=== PATIENT | female | born 1955 | race Caucasian/White ===

== ENCOUNTER 2016-09-06 12:29 | Inpatient (IN) | payer MEDICARE, OTHER ==
[~2016-09-06] VITALS: Ht 157.5 cm; Wt 77.7 kg
[~2016-09-06 12:29] MED LIST: ALPR1TAB6 PO; CRESTOR40 MG PO; FLUT1DIS3 IH; LOSA100T6 PO; OXYC1TAB9 PO; SERT100T PO; TIZA4TAB PO; VENL75CA6 PO
--- NOTE | 2016-09-06 12:52 | EKG ---
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
[2016-09-06] MEDS ORDERED: ONDANSETRON PF 4 MG/2 ML VIAL. IV ONE ×2 (13:15→13:30)
[2016-09-06] MEDS ORDERED: IPRATRPIUM/ALBUTEROL 0.5/2.5MG 3 ML NEBU. ONE (13:15)
[2016-09-06] MEDS ORDERED: ALBUTEROL SULFATE 2.5 MG/3 ML NEBU. ONE (13:15)
[2016-09-06] MEDS ORDERED: IPRATRPIUM/ALBUTEROL 0.5/2.5MG 3 ML NEBU. NEB ONE ×2 (13:30)
[2016-09-06] MEDS ORDERED: methylPREDNISolone SOD SUCC PF 125 MG/2 ML VIAL. IV ONE (13:30)
[2016-09-06] MEDS ORDERED: ALBUTEROL SULFATE 2.5 MG/3 ML NEBU. NEB ONE (13:30)
--- NOTE | 2016-09-06 13:33 | PHYS DOC ---
Past History Past Medical History: Arthritis, COPD, Hypertension, Other Past Surgical History: Cholecystectomy, Knee Replacement, Tubal ligation, Other Smoking: Greater than 1 pack/day Alcohol Use: None Drug Use: None Adult General Chief Complaint Chief Complaint: SHORTNESS OF BREATH HPI HPI Patient is a 61 year old female who presents with complaint of cough, shortness of breath, and chest pain. Patient states her symptoms have been present over the past week. Patient states that she has had aching pain across her chest over the past few days and has started to develop sharp pain along the left side of her chest. Patient states that her cough has been nonproductive. Patient has history of asthma and states that her asthma symptoms have been worsening during this time. The patient states that she was going to see her primary doctor today for evaluation, however she started getting worsening pain along the left side of her chest which prompted her to come to the emergency department for evaluation. Patient had no fevers. Patient states that she took breathing treatments earlier today with mild improvement in her shortness of breath symptoms. Patient states that she is still neck smoker at this time. Denies any history of heart attack. Review of Systems Review of Systems Constitutional: Fatigue, denies fever or chills [] Eyes: Denies change in visual acuity, redness, or eye pain [] HENT: Denies nasal congestion or sore throat [] Respiratory: Shortness of breath, cough [] Cardiovascular: Chest pain [] GI: Denies abdominal pain, nausea, vomiting, bloody stools or diarrhea [] : Denies dysuria or hematuria [] Musculoskeletal: Denies back pain or joint pain [] Integument: Denies rash or skin lesions [] Neurologic: Denies headache, focal weakness or sensory changes [] Current Medications Current Medications Current Medications Medications (Trade) Dose Ordered Sig/Sterling Start Time Stop Time Status Last Admin Dose Admin Albuterol Sulfate (Ventolin) 2.5 mg 1X ONCE 09/06/16 13:30 09/06/16 13:31 Albuterol/ Ipratropium (Duoneb) 3 ml 1X ONCE 09/06/16 13:30 09/06/16 13:31 Fentanyl Citrate (Fentanyl 2ml Vial) 50 mcg PRN Q15MIN PRN 09/06/16 13:15 09/07/16 13:14 Methylprednisolone Sodium Succinate (SOLU-Medrol 125MG VIAL) 125 mg 1X ONCE 09/06/16 13:30 09/06/16 13:31 Ondansetron HCl (Zofran) 4 mg 1X ONCE 09/06/16 13:15 09/06/16 13:17 DC Allergies Allergies Allergies Coded Allergies Type Severity Reaction Last Updated Verified Penicillins Allergy Severe 02/12/14 No Sulfa (Sulfonamide Antibiotics) Allergy Severe 02/12/14 No cephalexin Allergy Severe 02/12/14 No Physical Exam Physical Exam Constitutional: Alert, afebrile, appears in moderate discomfort. [] HENT: Normocephalic, atraumatic, bilateral external ears normal, oropharynx moist, no oral exudates, nose normal. [] Eyes: PERRLA, EOMI, conjunctiva normal, no discharge. [] Neck: Normal range of motion, no tenderness, supple, no stridor. [] Cardiovascular:Heart rate regular rhythm, no murmur [] Lungs & Thorax: Expiratory wheezes bilaterally, prolonged x-ray phase, tenderness to palpation along anterior and sternum and left anterior chest wall causing reproducible pain [] Abdomen: Bowel sounds normal, soft, no tenderness, no masses, no pulsatile masses. [] Skin: Warm, dry, no erythema, no rash. [] Back: No tenderness, no CVA tenderness. [] Extremities: No tenderness, no cyanosis, no clubbing, ROM intact, no edema. [] Neurologic: Alert and oriented X 3, normal motor function, normal sensory function, no focal deficits noted. [] Current Patient Data Vital Signs Vital Signs Date Time Temp Pulse Resp B/P (MAP) Pulse Ox O2 Delivery O2 Flow Rate FiO2 09/06/16 12:30 99.4 106 20 98 Room Air EKG EKG Interpreted by me: Heart rate 98, sinus rhythm, normal intervals, normal axis, no acute ST/T-wave abnormalities present [] Radiology/Procedures Radiology/Procedures [address] [address] IMAGING REPORT Signed PATIENT: KAI AMEZCUA ACCOUNT: [id number] : 1955 LOCATION: ER AGE: 61 SEX: F EXAM STATUS: REG ER ORD. PHYSICIAN: DONALD BEY MD REASON: chest pain, cough PROCEDURE: PORTABLE CHEST 1V Portable chest, 09/06/2016: History: Chest pain, cough, shortness of breath Comparison is made to a study from 02/09/2016. The heart size and pulmonary vascularity are normal. There is calcific plaquing of the aorta. No pulmonary infiltrates are seen. There is no evidence of pleural fluid. IMPRESSION: No acute cardiopulmonary abnormality is detected. DICTATED AND SIGNED BY: ROSEMARIE MICHEL MD DATE: 09/06/16 1340 CC: DONALD BEY MD; LINDSEY MIRANDA ~ [] Course & Med Decision Making Course & Med Decision Making Pertinent Labs and Imaging studies reviewed. (See chart for details) The patient was treated with albuterol, DuoNeb, Solu-Medrol, and given IV fentanyl for pain. The patient's pain symptoms have improved significantly and patient's cardiac enzymes are negative. Given the chronic nature of the patient' s pain lasting over 8 hours, and given its atypical features, one set of enzymes at this time is sufficient to rule out myocardial infarction. The patient however attempted to ambulate in the emergency department and started having worsening shortness of breath symptoms which improved with rest. The patient appears to have COPD exacerbation that is not improving with initial treatments. Patient also shows evidence of urinary tract infection. Patient started on Levaquin treatment. Given severity of symptoms, the patient will require admission to the hospital for continued treatment. I spoke with Dr. Elias who accepted care patient in hospital. Dragon Disclaimer Dragon Disclaimer This chart was dictated in whole or in part using Voice Recognition software in a busy, high-work load, and often noisy Emergency Department environment. It may contain unintended and wholly unrecognized errors or omissions. Departure Departure: Impression: Primary Impression: COPD with acute exacerbation Additional Impressions: Chest pain Urinary tract infection Disposition: ADMITTED INPATIENT Admitting Physician: Bindu Elias Condition: GUARDED Referrals: LINDSEY MIRANDA (PCP) Problem Qualifiers Additional Impressions: Chest pain Chest pain type: unspecified Qualified Codes: R07.9 - Chest pain, unspecified Urinary tract infection Urinary tract infection type: site unspecified Hematuria presence: without hematuria Qualified Codes: N39.0 - Urinary tract infection, site not specified DONALD BEY MD Sep 06, 2016 13:32
[2016-09-06 13:42] LABS: BASO # 0.1 x10^3/uL (0.0-0.2); BASO % 1 % (0-3); EOS % 1 % (0-3); HEMATOCRIT 34.9 % (36.0-47.0); HEMOGLOBIN 11.8 g/dL (12.0-15.5); LYMPH % 12 % (24-48); MEAN CORPUSCULAR HEMOGLOBIN 28 pg (25-35); MEAN CORPUSCULAR HGB CONC 34 g/dL (31-37); MEAN CORPUSCULAR VOLUME 84 fL (79-100); MONO # 0.4 x10^3/uL (0.0-1.1); MONO % 5 % (0-9); NEUT # 6.8 x10^3uL (1.8-7.7); NEUT % 82 % (31-73); PLATELET COUNT 275 x10^3/uL (140-400); RED BLOOD COUNT 4.14 x10^6/uL (3.50-5.40); RED CELL DISTRIBUTION WIDTH 13.8 % (11.5-14.5); WHITE BLOOD COUNT 8.3 x10^3/uL (4.0-11.0)
[2016-09-06] MEDS: fentaNYL PF 100 MCG/2 ML VIAL IV PRN ×2 (13:43→14:34)
--- NOTE | 2016-09-06 13:43 | RAD ---
Portable chest, 09/06/2016: History: Chest pain, cough, shortness of breath Comparison is made to a study from 02/09/2016. The heart size and pulmonary vascularity are normal. There is calcific plaquing of the aorta. No pulmonary infiltrates are seen. There is no evidence of pleural fluid. IMPRESSION: No acute cardiopulmonary abnormality is detected.
[2016-09-06 14:11] LABS: ALBUMIN/GLOBULIN RATIO 0.7 (1.0-1.7); CALCIUM 8.3 mg/dL (8.5-10.1); CREATININE 0.6 mg/dL (0.6-1.0); POTASSIUM 3.6 mmol/L (3.5-5.1); TOTAL BILIRUBIN 0.4 mg/dL (0.2-1.0); TOTAL PROTEIN 7.4 g/dL (6.4-8.2)
[2016-09-06 15:41] LABS: BACTERIA,URINE MANY /HPF (0-FEW); BILIRUBIN,URINE NEG (NEG); CLARITY,URINE HAZY; COLOR,URINE YELLOW; GLUCOSE,URINE NEG (NEG); NITRITE,URINE POS (NEG); SQUAMOUS EPITHELIAL CELL,UR OCC /LPF; UROBILINOGEN,URINE 0.2 mg/dL (0.2 mg/dL)
[2016-09-06] MEDS ORDERED: fentaNYL PF 100 MCG/2 ML VIAL IV PRN (17:15)
[2016-09-06] MEDS ORDERED: ONDANSETRON PF 4 MG/2 ML VIAL. IV PRN (17:15)
[2016-09-06] MEDS ORDERED: ACETAMINOPHEN 325 MG TABLET PO PRN (17:15)
[2016-09-06 17:25] VITALS: BP 108/65
[2016-09-06] MEDS: IV NORMAL SALINE 1,000ML 1,000 ML IV SCH (18:58)
[2016-09-06] MEDS: methylPREDNISolone SOD SUCC PF 40 MG/ML VIAL. IV SCH ×2 (18:59→23:48)
[2016-09-06] MEDS ORDERED: ESOM40CA PO (19:55)
[2016-09-06] MEDS ORDERED: SERT50TA PO (19:55)
[2016-09-06 19:56] VITALS: BP 104/62
[2016-09-06] MEDS ORDERED: LEVO150T5 PO (19:56)
[2016-09-06] MEDS ORDERED: SUCR1TAB35 PO (19:57)
[2016-09-06] MEDS ORDERED: PRAM0.125 PO (20:01)
[2016-09-06] MEDS ORDERED: FLUT1BLS IH (20:01)
[2016-09-06] MEDS: oxyCODONE/APAP 10/325 1 TAB TABLET PO PRN (20:19)
[2016-09-06] MEDS: ALPRAZolam 0.5 MG TABLET PO SCH (20:19)
[2016-09-06] MEDS: IPRATRPIUM/ALBUTEROL 0.5/2.5MG 3 ML NEBU. NEB SCH (20:28)
[2016-09-06 21:48] VITALS: BP 100/60
[2016-09-07 02:05] VITALS: BP 105/73
[2016-09-07] MEDS: IV NORMAL SALINE 1,000ML 1,000 ML IV SCH ×2 (02:40→13:58)
[2016-09-07 04:37] VITALS: BP 105/57
[2016-09-07] MEDS: IPRATRPIUM/ALBUTEROL 0.5/2.5MG 3 ML NEBU. NEB SCH ×3 (05:36→15:23)
[2016-09-07] MEDS: methylPREDNISolone SOD SUCC PF 40 MG/ML VIAL. IV SCH ×3 (05:39→17:52)
[2016-09-07 06:41] LABS: CALCIUM 8.7 mg/dL (8.5-10.1); CREATININE 0.7 mg/dL (0.6-1.0); GFR 85.4; POTASSIUM 3.1 mmol/L (3.5-5.1)
[2016-09-07 06:50] LABS: BASO % 0 % (0-3); EOS % 0 % (0-3); HEMATOCRIT 32.5 % (36.0-47.0); HEMOGLOBIN 10.9 g/dL (12.0-15.5); LYMPH # 0.5 x10^3/uL (1.0-4.8); LYMPH % 6 % (24-48); MEAN CORPUSCULAR HEMOGLOBIN 29 pg (25-35); MEAN CORPUSCULAR HGB CONC 34 g/dL (31-37); MEAN CORPUSCULAR VOLUME 85 fL (79-100); MONO # 0.2 x10^3/uL (0.0-1.1); MONO % 2 % (0-9); NEUT % 92 % (31-73); PLATELET COUNT 259 x10^3/uL (140-400); RED BLOOD COUNT 3.84 x10^6/uL (3.50-5.40); RED CELL DISTRIBUTION WIDTH 13.6 % (11.5-14.5); WHITE BLOOD COUNT 8.7 x10^3/uL (4.0-11.0)
[2016-09-07] MEDS ORDERED: POTASSIUM CHLORIDE 20 MEQ TABLET.ER. PO ONE (08:40)
[2016-09-07] MEDS: ALPRAZolam 0.5 MG TABLET PO SCH ×4 (08:42→20:38)
[2016-09-07] MEDS: PANTOPRAZOLE 40 MG TABLET. PO SCH (08:42)
[2016-09-07] MEDS ORDERED: SUCRALFATE 1 GM TABLET. PO PRN (10:15)
--- NOTE | 2016-09-07 10:54 | PDOC1 ---
History of Present Illness Reason for Visit: Dyspnea History of Present Illness Pt presented to the ER yesterday w/ SOA after about 6 days of worsening pleuritic chest pain and SOA. She states that she started feeling poorly last Friday when she was exposed to some pets that lived in a house she was sitting. She says over the course of the week she has gotten more SOA and having pain w/ deep inspiration. She denies dizziness. She did have a fever, subjective. Denies blood in stool or urine. Was in ER a couple years ago w/ acute hepatitis, but this has resolved. Pt states she just saw her PCP last month, and everything checked out ok. She is not sure the last time her thyroid was checked. Today, she states she feels better. She is not requiring O2. She reports she has been tested for sleep apnea and does not have that, only restless leg syndrome. She denies diarrhea or fever since admission. Her son-in-law is an emergency physician. Chief Complaint: SHORTNESS OF BREATH Allergies: Coded Allergies: Penicillins (Unverified Allergy, Severe, 02/12/14) Sulfa (Sulfonamide Antibiotics) (Unverified Allergy, Severe, 02/12/14) cephalexin (Unverified Allergy, Severe, 02/12/14) Past Medical History Cardiac: HTN Pulmonary: Bronchitis Psych: Anxiety Past Surgical History: Cholecystectomy, Total knee replacement (LEFT), Tubal Ligation, Other (resection of stomach tumor) Family History: No pertinent hx Past Social History Smoke: 1 pack per day Alcohol: none Drugs: None Lives: Alone Review of Systems Review Of Systems Fourteen system , review of systems has been reviewed. See HPI for pertinent positives and negative responses, other [place] all other systems are negative, non pertinent or non contributory Constitutional: Fever, Malaise, No: Chills, Sweats Eyes: No: Decreased vision, Eye Pain, Loss of vision ENT: No: Nose pain, Nose congestion, Mouth pain Respiratory: YES: Cough, Shortness of breath Cardiovascular: yes: Chest Pain (pleuritic, improved), No: Palpitations, Orthopnea, Edema, Lt Headedness Gastrointestinal: No: Nausea, Vomiting, Abdominal Pain, Diarrhea, Constipation , Melena, Hematochezia Genitourinary: No: Dysuria, Henaturia, Pelvic Pain SKIN: YES: Warm, Dry, No Rashes Neurological: No: Confusion, Dizziness, Headaches, Memory Loss, Seizures, Tremors, Weakness Allergies: Coded Allergies: Penicillins (Unverified Allergy, Severe, 02/12/14) Sulfa (Sulfonamide Antibiotics) (Unverified Allergy, Severe, 02/12/14) cephalexin (Unverified Allergy, Severe, 02/12/14) Medications Current Medications Albuterol/ Ipratropium (Duoneb) 3 ml STK-MED ONCE .ROUTE ; Start 09/06/16 at 13: 15; Stop 09/06/16 at 13:16; Status DC Albuterol Sulfate (Ventolin) 2.5 mg STK-MED ONCE .ROUTE ; Start 09/06/16 at 13: 15; Stop 09/06/16 at 13:16; Status DC Albuterol/ Ipratropium (Duoneb) 3 ml 1X ONCE NEB Last administered on 13:22; Start 09/06/16 at 13:30; Stop 09/06/16 at 13:31; Status DC Albuterol/ Ipratropium (Duoneb) 3 ml 1X ONCE NEB ; Start 09/06/16 at 13:30; Stop 09/06/16 at 13:31; Status DC Fentanyl Citrate (Fentanyl 2ml Vial) 50 mcg PRN Q15MIN PRN IV PAIN GREATER THAN 3/10 Last administered on 09/06/16 14:34; Start 09/06/16 at 13:15; Stop at 18:35; Status DC Ondansetron HCl (Zofran) 4 mg 1X ONCE IV Last administered on 09/06/16 13:30 ; Start 09/06/16 at 13:30; Stop 09/06/16 at 13:31; Status DC Methylprednisolone Sodium Succinate (SOLU-Medrol 125MG VIAL) 125 mg 1X ONCE IV Last administered on 09/06/16 13:30; Start 09/06/16 at 13:30; Stop 09/06/16 at 13:31; Status DC Albuterol Sulfate (Ventolin) 2.5 mg 1X ONCE NEB Last administered on 13:28; Start 09/06/16 at 13:30; Stop 09/06/16 at 13:31; Status DC Ondansetron HCl (Zofran) 4 mg 1X ONCE IV ; Start 09/06/16 at 13:15; Stop at 13:17; Status DC Levofloxacin/ Dextrose (Levaquin Per Pharmacy) 1 each PRN DAILY PRN MC SEE COMMENTS; Start 09/06/16 at 17:00 Ondansetron HCl (Zofran) 4 mg PRN Q4HRS PRN IV NAUSEA/VOMITING; Start 09/06/16 at 17:15; Stop 09/07/16 at 17:14 Fentanyl Citrate (Fentanyl 2ml Vial) 50 mcg PRN Q2HR PRN IV PAIN Last administered on 09/07/16 04:41; Start 09/06/16 at 17:15; Stop 09/07/16 at 17:14 Sodium Chloride 1,000 ml @ 100 mls/hr Q10H IV Last administered on 09/07/16 02:40; Start 09/06/16 at 17:15; Stop 09/07/16 at 17:14 Acetaminophen (Tylenol) 650 mg PRN Q4HRS PRN PO FEVER; Start 09/06/16 at 17:15 ; Stop 09/07/16 at 17:14 Albuterol/ Ipratropium (Duoneb) 3 ml RTQID NEB Last administered on 09/07/16 09:42; Start 09/06/16 at 20:00; Stop 09/07/16 at 19:59 Methylprednisolone Sodium Succinate (SOLU-Medrol 40MG VIAL) 60 mg Q6HRS IV Last administered on 09/07/16 05:39; Start 09/06/16 at 18:00 Levofloxacin/ Dextrose 150 ml @ 150 mls/hr Q24H IV Last administered on 18:58; Start 09/06/16 at 17:30; Stop 09/07/16 at 09:54; Status DC Oxycodone/ Acetaminophen (Percocet 10/325) 1 tab PRN Q6HRS PRN PO PAIN Last administered on 09/06/16 20:19; Start 09/06/16 at 20:15 Alprazolam (Xanax) 1 mg QID PO Last administered on 09/07/16 08:42; Start at 21:00 Pantoprazole Sodium (Protonix) 40 mg DAILY PO Last administered on 09/07/16 08 :42; Start 09/07/16 at 09:00 Potassium Chloride (Klor-Con) 40 meq 1X ONCE PO Last administered on 08:42; Start 09/07/16 at 08:40; Stop 09/07/16 at 08:41; Status DC Levofloxacin/ Dextrose 50 ml @ 50 mls/hr Q24H IV ; Start 09/07/16 at 17:00 Levothyroxine Sodium (Synthroid) 150 mcg DAILY06 PO ; Start 09/07/16 at 11:00 Sertraline HCl (Zoloft) 50 mg DAILY PO ; Start 09/07/16 at 11:00 Sertraline HCl (Zoloft) 150 mg QHS PO ; Start 09/07/16 at 21:00 Sucralfate (Carafate) 1 gm PRN DAILY PRN PO HEARTBURN / GAS; Start 09/07/16 at 10:15 Non-Formulary Medication 1 puff DAILY IH ; Start 09/08/16 at 09:00; Status UNV Losartan Potassium (Cozaar) 100 mg DAILY PO ; Start 09/07/16 at 11:00 Pramipexole Dihydrochloride (miraPEX) 0.375 mg QHS PO ; Start 09/07/16 at 21:00 Budesonide (Pulmicort) 0.5 mg RTBID NEB ; Start 09/07/16 at 11:00 Active Scripts Active Reported Breo Ellipta 200-25 Mcg INH (Fluticasone/Vilanterol) 1 Each Blst.w.dev 1 Puff IH DAILY LAST DOSE GIVEN: DATE: TIME: NEXT DOSE DUE: DATE: TIME: Mirapex (Pramipexole Di-Hcl) 0.125 Mg Tablet 3 Tab PO QHS LAST DOSE GIVEN: DATE: TIME: NEXT DOSE DUE: DATE: TIME: Carafate (Sucralfate) 1 Gm Tablet 1 Tab PO PRN DAILY PRN Levothyroxine Sodium 150 Mcg Tablet 1 Tab PO DAILY06 LAST DOSE GIVEN: DATE: TIME: NEXT DOSE DUE: DATE: TIME: Nexium Capsule (Esomeprazole Magnesium) 40 Mg Capsule.dr 1 Cap PO DAILY LAST DOSE GIVEN: DATE: TIME: NEXT DOSE DUE: DATE: TIME: Zoloft (Sertraline Hcl) 50 Mg Tablet 1 Tab PO DAILY LAST DOSE GIVEN: DATE: TIME: NEXT DOSE DUE: DATE: TIME: Zoloft (Sertraline Hcl) 100 Mg Tablet 150 Mg PO QHS LAST DOSE GIVEN: DATE: TIME: NEXT DOSE DUE: DATE: TIME: Losartan Potassium 100 Mg Tablet 100 Mg PO DAILY LAST DOSE GIVEN: DATE: TIME: NEXT DOSE DUE: DATE: TIME: Alprazolam 1 Mg Tablet 1 Mg PO QID LAST DOSE GIVEN: DATE: TIME: NEXT DOSE DUE: DATE: TIME: Oxycodone-Acetaminophen 10-325 (Oxycodone Hcl/Acetaminophen) 1 Each Tablet 1 Each PO PRN Q6HRS PRN LAST DOSE GIVEN: DATE: TIME: NEXT DOSE DUE: DATE: TIME: Exam Vital Signs Vital Signs Date Time Temp Pulse Resp B/P (MAP) Pulse Ox O2 Delivery O2 Flow Rate FiO2 09/07/16 09:43 95 Room Air 09/07/16 04:37 97.9 79 18 105/57 (73) General Appearance: Alert, Oriented X3, Cooperative, No acute distress HEENT: Atraumatic, PERRLA, EOMI, Mucous membr. moist/pink, Other (Neck supple, full ROM, no JVD, no LAD, no thyromegaly) Respiratory: Clear to auscultation, Normal air movement Heart: Regular rate, Normal S1, Normal S2, No murmurs Abdominal: Normal bowel sounds, Soft, No tenderness, No hepatospenomegaly, No masses Extremities: No clubbing, No cyanosis, No edema, Normal pulses, No tenderness/ swelling Skin: No rashes, No breakdown, No significant lesion Neuro: Normal speech, Strength at 5/5 X4 ext, Normal tone, Sensation intact, Cranial nerves 3-12 NL, Reflexes 2+, Other (Pt slightly "shaky" right now as she just had a nebulizer treatment) Psych/Mental Status: Mental status NL, Mood NL Assessment/Plan Assessment/Plan 1. Acute COPD exacerbation: Pt on Breo at home. Currently on abx (Levaquin), IV steroids, bronchodilators. Continue to taper therapy, pt may require another night as she was quite dyspneic and I would like to further workup her other issues. BNP was elevated, but CXR and hx do not suggest CHF. Recommend echo as outpatient. 2. HTN: Stable. Monitor BP. 3. ANemia: Pt reports having had colonoscopy within last 5 years. She also reports a history of anemia. Etiology is unclear. It is normocytic. Will defer to PCP for further workup. 4. Chest pain: I will repeat troponin. EKG reported to be normal, and CXR was normal. Sx's are improved, possibly pleuritic. Well's score for PE is ZERO. D-dimer would not be appropriate as her risk of PE is low. Since pt is improving w/ bronchodilators and steroids, we will continue this therapy. 5. Elevated alk phos: Unclear if this is new. Pt has a hx of acute hepatitis , but that has resolved. Recommend pt have this worked up further as an outpatient. 6. Hyponatremia: Mild, etiology unclear. Continue to monitor. Check urine sodium. 7. DVT proph: Lovenox. 8. Mild PEM: Encourage healthy diet. Encourage smoking cessation. 9. Disp: I expect 2 full MN due to extent of illness and comorbid conditions. COURSE Allergies Coded Allergies Type Severity Reaction Last Updated Verified Penicillins Allergy Severe 02/12/14 No Sulfa (Sulfonamide Antibiotics) Allergy Severe 02/12/14 No cephalexin Allergy Severe 02/12/14 No Laboratory Tests Test 09/06/16 13:28 09/06/16 15:02 09/07/16 06:15 White Blood Count 8.3 x10^3/uL (4.0-11.0) 8.7 x10^3/uL (4.0-11.0) Red Blood Count 4.14 x10^6/uL (3.50-5.40) 3.84 x10^6/uL (3.50-5.40) Hemoglobin 11.8 g/dL (12.0-15.5) 10.9 g/dL (12.0-15.5) Hematocrit 34.9 % (36.0-47.0) 32.5 % (36.0-47.0) Mean Corpuscular Volume 84 fL (79-100) 85 fL (79-100) Mean Corpuscular Hemoglobin 28 pg (25-35) 29 pg (25-35) Mean Corpuscular Hemoglobin Concent 34 g/dL (31-37) 34 g/dL (31-37) Red Cell Distribution Width 13.8 % (11.5-14.5) 13.6 % (11.5-14.5) Platelet Count 275 x10^3/uL (140-400) 259 x10^3/uL (140-400) Neutrophils (%) (Auto) 82 % (31-73) 92 % (31-73) Lymphocytes (%) (Auto) 12 % (24-48) 6 % (24-48) Monocytes (%) (Auto) 5 % (0-9) 2 % (0-9) Eosinophils (%) (Auto) 1 % (0-3) 0 % (0-3) Basophils (%) (Auto) 1 % (0-3) 0 % (0-3) Neutrophils # (Auto) 6.8 x10^3uL (1.8-7.7) 8.0 x10^3uL (1.8-7.7) Lymphocytes # (Auto) 1.0 x10^3/uL (1.0-4.8) 0.5 x10^3/uL (1.0-4.8) Monocytes # (Auto) 0.4 x10^3/uL (0.0-1.1) 0.2 x10^3/uL (0.0-1.1) Eosinophils # (Auto) 0.0 x10^3/uL (0.0-0.7) 0.0 x10^3/uL (0.0-0.7) Basophils # (Auto) 0.1 x10^3/uL (0.0-0.2) 0.0 x10^3/uL (0.0-0.2) Sodium Level 132 mmol/L (136-145) 132 mmol/L (136-145) Potassium Level 3.6 mmol/L (3.5-5.1) 3.1 mmol/L (3.5-5.1) Chloride Level 97 mmol/L (98-107) 98 mmol/L (98-107) Carbon Dioxide Level 26 mmol/L (21-32) 22 mmol/L (21-32) Anion Gap 9 (6-14) 12 (6-14) Blood Urea Nitrogen 6 mg/dL (7-20) 8 mg/dL (7-20) Creatinine 0.6 mg/dL (0.6-1.0) 0.7 mg/dL (0.6-1.0) Estimated GFR (Cockcroft-Gault) 102.0 85.4 BUN/Creatinine Ratio 10 (6-20) Glucose Level 113 mg/dL (70-99) 160 mg/dL (70-99) Calcium Level 8.3 mg/dL (8.5-10.1) 8.7 mg/dL (8.5-10.1) Total Bilirubin 0.4 mg/dL (0.2-1.0) Aspartate Amino Transf (AST/SGOT) 21 U/L (15-37) Alanine Aminotransferase (ALT/SGPT) 26 U/L (14-59) Alkaline Phosphatase 170 U/L (46-116) Creatine Kinase 44 U/L (26-192) Creatine Kinase MB (Mass) 0.5 ng/mL (0.0-3.6) Creatine Kinase MB Relative Index 1.1 % (0-4) Troponin I Quantitative < 0.017 ng/mL (0-0.055) IP-Bjy-X-Type Natriuretic Peptide 518 pg/mL (0-124) Total Protein 7.4 g/dL (6.4-8.2) Albumin 3.0 g/dL (3.4-5.0) Albumin/Globulin Ratio 0.7 (1.0-1.7) Urine Collection Type Unknown Urine Color Yellow Urine Clarity Hazy Urine pH 6.5 Urine Specific [place] 1.010 Urine Protein 30 mg/dl (NEG-TRACE) Urine Glucose (UA) Neg mg/dL (NEG) Urine Ketones (Stick) Neg mg/dL (NEG) Urine Blood Large (NEG) Urine Nitrite Pos (NEG) Urine Bilirubin Neg (NEG) Urine Urobilinogen Dipstick 0.2 mg/dL (0.2 mg/dL) Urine Leukocyte Esterase Small (NEG) Urine RBC 3-5 /HPF (0-2) Urine WBC 5-10 /HPF (0-4) Urine Squamous Epithelial Cells Occ /LPF Urine Bacteria Many /HPF (0-FEW) Current Medications Medications (Trade) Dose Ordered Sig/Sterling Route PRN Reason Start Time Stop Time Status Last Admin Dose Admin Albuterol/ Ipratropium (Duoneb) 3 ml STK-MED ONCE .ROUTE 09/06/16 13:15 09/06/16 13:16 DC Albuterol Sulfate (Ventolin) 2.5 mg STK-MED ONCE .ROUTE 09/06/16 13:15 09/06/16 13:16 DC Albuterol/ Ipratropium (Duoneb) 3 ml 1X ONCE NEB 09/06/16 13:30 09/06/16 13:31 DC 09/06/16 13:22 Albuterol/ Ipratropium (Duoneb) 3 ml 1X ONCE NEB 09/06/16 13:30 09/06/16 13:31 DC Fentanyl Citrate (Fentanyl 2ml Vial) 50 mcg PRN Q15MIN PRN IV PAIN GREATER THAN 309/06/16 13:15 09/06/16 18:35 DC 09/06/16 14:34 Ondansetron HCl (Zofran) 4 mg 1X ONCE IV 09/06/16 13:30 09/06/16 13:31 DC 09/06/16 13:30 Methylprednisolone Sodium Succinate (SOLU-Medrol 125MG VIAL) 125 mg 1X ONCE IV 09/06/16 13:30 09/06/16 13:31 DC 09/06/16 13:30 Albuterol Sulfate (Ventolin) 2.5 mg 1X ONCE NEB 09/06/16 13:30 09/06/16 13:31 DC 09/06/16 13:28 Ondansetron HCl (Zofran) 4 mg 1X ONCE IV 09/06/16 13:15 09/06/16 13:17 DC Levofloxacin/ Dextrose (Levaquin Per Pharmacy) 1 each PRN DAILY PRN MC SEE COMMENTS 09/06/16 17:00 Ondansetron HCl (Zofran) 4 mg PRN Q4HRS PRN IV NAUSEA/VOMITING 09/06/16 17:15 09/07/16 17:14 Fentanyl Citrate (Fentanyl 2ml Vial) 50 mcg PRN Q2HR PRN IV PAIN 09/06/16 17:15 09/07/16 17:14 09/07/16 04:41 Sodium Chloride 1,000 ml @ 100 mls/hr Q10H IV 09/06/16 17:15 09/07/16 17:14 09/07/16 02:40 Acetaminophen (Tylenol) 650 mg PRN Q4HRS PRN PO FEVER 09/06/16 17:15 09/07/16 17:14 Albuterol/ Ipratropium (Duoneb) 3 ml RTQID NEB 09/06/16 20:00 09/07/16 19:59 09/07/16 09:42 Methylprednisolone Sodium Succinate (SOLU-Medrol 40MG VIAL) 60 mg Q6HRS IV 09/06/16 18:00 09/07/16 05:39 Levofloxacin/ Dextrose 150 ml @ 150 mls/hr Q24H IV 09/06/16 17:30 09/07/16 09:54 DC 09/06/16 18:58 Oxycodone/ Acetaminophen (Percocet 10/325) 1 tab PRN Q6HRS PRN PO PAIN 09/06/16 20:15 09/06/16 20:19 Alprazolam (Xanax) 1 mg QID PO 09/06/16 21:00 09/07/16 08:42 Pantoprazole Sodium (Protonix) 40 mg DAILY PO 09/07/16 09:00 09/07/16 08:42 Potassium Chloride (Klor-Con) 40 meq 1X ONCE PO 09/07/16 08:40 09/07/16 08:41 DC 09/07/16 08:42 Levofloxacin/ Dextrose 50 ml @ 50 mls/hr Q24H IV 09/07/16 17:00 Levothyroxine Sodium (Synthroid) 150 mcg DAILY06 PO 09/07/16 11:00 Sertraline HCl (Zoloft) 50 mg DAILY PO 09/07/16 11:00 Sertraline HCl (Zoloft) 150 mg QHS PO 09/07/16 21:00 Sucralfate (Carafate) 1 gm PRN DAILY PRN PO HEARTBURN / GAS 09/07/16 10:15 Non-Formulary Medication 1 puff DAILY IH 09/08/16 09:00 UNV Losartan Potassium (Cozaar) 100 mg DAILY PO 09/07/16 11:00 Pramipexole Dihydrochloride (miraPEX) 0.375 mg QHS PO 09/07/16 21:00 Budesonide (Pulmicort) 0.5 mg RTBID NEB 09/07/16 11:00 I & O 09/07/16 00:00 Intake Total 240 ml Balance 240 ml Vital Signs Date Time Temp Pulse Resp B/P (MAP) Pulse Ox O2 Delivery O2 Flow Rate FiO2 09/07/16 09:43 95 Room Air 09/07/16 04:37 97.9 79 18 105/57 (73) EKG: No ischemic changes per ER. CXR: Portable chest, 09/06/2016: History: Chest pain, cough, shortness of breath Comparison is made to a study from 02/09/2016. The heart size and pulmonary vascularity are normal. There is calcific plaquing of the aorta. No pulmonary infiltrates are seen. There is no evidence of pleural fluid. IMPRESSION: No acute cardiopulmonary abnormality is detected. MELINA RICHARD MD Sep 07, 2016 10:54
[2016-09-07 11:00] VITALS: BP 130/46
[2016-09-07] MEDS: LOSARTAN 50 MG TABLET. PO SCH (11:02)
[2016-09-07] MEDS: SERTRALINE 50 MG TABLET. PO SCH (11:03)
[2016-09-07] MEDS: LEVOTHYROXINE 150 MCG TABLET PO SCH (11:03)
[2016-09-07] MEDS: ENOXAPARIN 40 MG/0.4 ML DISP.SYRIN. SQ SCH (11:08)
[2016-09-07] MEDS: BUDESONIDE 0.5 MG/2 ML NEBU NEB SCH ×2 (15:23→20:15)
[2016-09-07 15:34] VITALS: BP 125/59
[2016-09-07 19:45] VITALS: BP 137/63
[2016-09-07] MEDS: PRAMIPEXOLE 0.25 MG TABLET. PO SCH (20:38)
[2016-09-07] MEDS: SERTRALINE 100 MG TABLET. PO SCH (20:38)
[2016-09-07 22:25] VITALS: BP 130/61
[2016-09-08] MEDS: methylPREDNISolone SOD SUCC PF 40 MG/ML VIAL. IV SCH ×3 (00:30→12:43)
[2016-09-08] MEDS: LEVOTHYROXINE 150 MCG TABLET PO SCH (05:13)
[2016-09-08 06:02] VITALS: BP 118/59
[2016-09-08 07:16] LABS: BASO % 0 % (0-3); EOS % 0 % (0-3); HEMATOCRIT 35.3 % (36.0-47.0); HEMOGLOBIN 11.8 g/dL (12.0-15.5); LYMPH # 0.5 x10^3/uL (1.0-4.8); LYMPH % 3 % (24-48); MEAN CORPUSCULAR HEMOGLOBIN 28 pg (25-35); MEAN CORPUSCULAR HGB CONC 33 g/dL (31-37); MEAN CORPUSCULAR VOLUME 85 fL (79-100); MONO # 0.3 x10^3/uL (0.0-1.1); MONO % 2 % (0-9); NEUT # 14.8 x10^3uL (1.8-7.7); NEUT % 95 % (31-73); PLATELET COUNT 343 x10^3/uL (140-400); RED BLOOD COUNT 4.16 x10^6/uL (3.50-5.40); RED CELL DISTRIBUTION WIDTH 13.8 % (11.5-14.5); WHITE BLOOD COUNT 15.7 x10^3/uL (4.0-11.0)
[2016-09-08 07:42] LABS: ALBUMIN 2.8 g/dL (3.4-5.0); ALBUMIN/GLOBULIN RATIO 0.5 (1.0-1.7); CALCIUM 8.9 mg/dL (8.5-10.1); CREATININE 0.7 mg/dL (0.6-1.0); GFR 85.4; TOTAL BILIRUBIN 0.2 mg/dL (0.2-1.0); TOTAL PROTEIN 7.9 g/dL (6.4-8.2)
[2016-09-08 08:44] LABS: % BANDS 3 % (0-9); % LYMPHS 7 % (24-48); % MONOS 1 % (0-10); % SEGS 89 % (35-66)
[2016-09-08 08:48] LABS: PLT ESTIMATE ADEQUATE (ADEQUATE); POLYCHROMASIA SLIGHT
[2016-09-08] MEDS ORDERED: NON FORMULARY ITEM (Fluticasone/Vilanterol (Breo Ellipta 200-25 Mcg INH) 1 PUFF) IH SCH (09:00)
[2016-09-08] MEDS: LOSARTAN 50 MG TABLET. PO SCH (09:00)
[2016-09-08] MEDS: PANTOPRAZOLE 40 MG TABLET. PO SCH (09:17)
[2016-09-08] MEDS: SERTRALINE 50 MG TABLET. PO SCH (09:17)
[2016-09-08] MEDS: ALPRAZolam 0.5 MG TABLET PO SCH ×4 (09:18→21:13)
[2016-09-08 09:21] VITALS: BP 108/63
[2016-09-08] MEDS: BUDESONIDE 0.5 MG/2 ML NEBU NEB SCH ×2 (09:54→20:30)
[2016-09-08 10:23] VITALS: BP 101/59
[2016-09-08] MEDS: ENOXAPARIN 40 MG/0.4 ML DISP.SYRIN. SQ SCH (11:24)
--- NOTE | 2016-09-08 12:15 | PDOC ---
PROGRESS NOTES Assessment 1. Acute COPD exacerbation: Pt on Breo at home. Currently on abx (Levaquin), IV steroids, bronchodilators. Recommend echo as outpatient as BNP was elevated , no sign of CHF on exam. Increase Levaquin dose. 2. HTN: Stable. Monitor BP. Pt has been off Cozaar due to lower BP. 3. ANemia: Pt reports having had colonoscopy within last 5 years. She also reports a history of anemia. Etiology is unclear. It is normocytic. Will defer to PCP for further workup. 4. Chest pain: Troponins and EKG negative. Pt continues to have left-sided chest pain, though she says it is "way better." I am going to do a CT angio to r/o PE and lung mass. Pt is agreeable with this. 5. Elevated alk phos: Unclear if this is new. Pt has a hx of acute hepatitis , but that has resolved. Recommend pt have this worked up further as an outpatient. 6. Hyponatremia: Mild, etiology unclear. Sodium improved today. Urine sodium pending. 7. DVT proph: Lovenox. 8. Mild PEM: Encourage healthy diet. Encourage smoking cessation. 9. Disp: Although it is still possible pt could go home today, I would like to make sure we have ruled out things in her chest that could cause the pain. Primarily looking for lung mass, focus of pneumonia, or PE (small, peripheral). Pt may need another night given the tenuous nature of her condition. Problems: Plan of Care: see other orders Subjective Pt states she did not sleep well last night. She is still having the left- sided chest pain, though she says it is "way better than when I came in." Denies hemoptysis, fever, dizziness, blood in stool, vomiting, diarrhea. Still SOA w/ exertion. Still wheezing. Objective Vital Signs Date Time Temp Pulse Resp B/P (MAP) Pulse Ox O2 Delivery O2 Flow Rate FiO2 09/08/16 11:14 98.4 09/08/16 10:23 83 18 101/59 (73) 95 Room Air Intake and Output 09/08/16 07:00 Intake Total 3413 ml Output Total 400 ml Balance 3013 ml Intake Oral 2080 ml IV Total 1333 ml Output Urine Total 400 ml # Voids 4 Abdomen: Soft, No tenderness, No masses Heart: Regular rate, Normal S1, Normal S2, No murmurs Extremities: No edema, Normal pulses General: Alert, Oriented X3, Cooperative, No acute distress HEENT: Atraumatic, PERRLA, EOMI, Mucous membr. moist/pink Lungs: Other (Scattered expiratory wheezes that improve w/ deep breathing, resp effort non-labored, no crackles.) Neck: No JVD Neuro: Normal speech, Strength at 5/5 X4 ext, Normal tone, Cranial nerves 3-12 NL, Reflexes 2+ Psych/Mental Status: Mental status NL, Mood NL Skin: No rashes Review of Relevant I have reviewed the following items derek (where applicable) has been applied. Labs Laboratory Tests Test 09/06/16 13:28 09/06/16 15:02 09/06/16 18:45 09/07/16 06:15 White Blood Count 8.3 x10^3/uL (4.0-11.0) 8.7 x10^3/uL (4.0-11.0) Red Blood Count 4.14 x10^6/uL (3.50-5.40) 3.84 x10^6/uL (3.50-5.40) Hemoglobin 11.8 g/dL (12.0-15.5) 10.9 g/dL (12.0-15.5) Hematocrit 34.9 % (36.0-47.0) 32.5 % (36.0-47.0) Mean Corpuscular Volume 84 fL (79-100) 85 fL (79-100) Mean Corpuscular Hemoglobin 28 pg (25-35) 29 pg (25-35) Mean Corpuscular Hemoglobin Concent 34 g/dL (31-37) 34 g/dL (31-37) Red Cell Distribution Width 13.8 % (11.5-14.5) 13.6 % (11.5-14.5) Platelet Count 275 x10^3/uL (140-400) 259 x10^3/uL (140-400) Neutrophils (%) (Auto) 82 % (31-73) 92 % (31-73) Lymphocytes (%) (Auto) 12 % (24-48) 6 % (24-48) Monocytes (%) (Auto) 5 % (0-9) 2 % (0-9) Eosinophils (%) (Auto) 1 % (0-3) 0 % (0-3) Basophils (%) (Auto) 1 % (0-3) 0 % (0-3) Neutrophils # (Auto) 6.8 x10^3uL (1.8-7.7) 8.0 x10^3uL (1.8-7.7) Lymphocytes # (Auto) 1.0 x10^3/uL (1.0-4.8) 0.5 x10^3/uL (1.0-4.8) Monocytes # (Auto) 0.4 x10^3/uL (0.0-1.1) 0.2 x10^3/uL (0.0-1.1) Eosinophils # (Auto) 0.0 x10^3/uL (0.0-0.7) 0.0 x10^3/uL (0.0-0.7) Basophils # (Auto) 0.1 x10^3/uL (0.0-0.2) 0.0 x10^3/uL (0.0-0.2) Sodium Level 132 mmol/L (136-145) 132 mmol/L (136-145) Potassium Level 3.6 mmol/L (3.5-5.1) 3.1 mmol/L (3.5-5.1) Chloride Level 97 mmol/L (98-107) 98 mmol/L (98-107) Carbon Dioxide Level 26 mmol/L (21-32) 22 mmol/L (21-32) Anion Gap 9 (6-14) 12 (6-14) Blood Urea Nitrogen 6 mg/dL (7-20) 8 mg/dL (7-20) Creatinine 0.6 mg/dL (0.6-1.0) 0.7 mg/dL (0.6-1.0) Estimated GFR (Cockcroft-Gault) 102.0 85.4 BUN/Creatinine Ratio 10 (6-20) Glucose Level 113 mg/dL (70-99) 160 mg/dL (70-99) Calcium Level 8.3 mg/dL (8.5-10.1) 8.7 mg/dL (8.5-10.1) Total Bilirubin 0.4 mg/dL (0.2-1.0) Aspartate Amino Transf (AST/SGOT) 21 U/L (15-37) Alanine Aminotransferase (ALT/SGPT) 26 U/L (14-59) Alkaline Phosphatase 170 U/L (46-116) Creatine Kinase 44 U/L (26-192) Creatine Kinase MB (Mass) 0.5 ng/mL (0.0-3.6) Creatine Kinase MB Relative Index 1.1 % (0-4) Troponin I Quantitative < 0.017 ng/mL (0-0.055) < 0.017 ng/mL (0-0.055) ZG-Bpi-A-Type Natriuretic Peptide 518 pg/mL (0-124) Total Protein 7.4 g/dL (6.4-8.2) Albumin 3.0 g/dL (3.4-5.0) Albumin/Globulin Ratio 0.7 (1.0-1.7) Urine Collection Type Unknown Urine Color Yellow Urine Clarity Hazy Urine pH 6.5 Urine Specific [place] 1.010 Urine Protein 30 mg/dl (NEG-TRACE) Urine Glucose (UA) Neg mg/dL (NEG) Urine Ketones (Stick) Neg mg/dL (NEG) Urine Blood Large (NEG) Urine Nitrite Pos (NEG) Urine Bilirubin Neg (NEG) Urine Urobilinogen Dipstick 0.2 mg/dL (0.2 mg/dL) Urine Leukocyte Esterase Small (NEG) Urine RBC 3-5 /HPF (0-2) Urine WBC 5-10 /HPF (0-4) Urine Squamous Epithelial Cells Occ /LPF Urine Bacteria Many /HPF (0-FEW) Nasal Screen MRSA (PCR) Negative (Negative) Thyroid Stimulating Hormone (TSH) 2.428 uIU/mL (0.358-3.740) Test 09/08/16 06:45 White Blood Count 15.7 x10^3/uL (4.0-11.0) Red Blood Count 4.16 x10^6/uL (3.50-5.40) Hemoglobin 11.8 g/dL (12.0-15.5) Hematocrit 35.3 % (36.0-47.0) Mean Corpuscular Volume 85 fL (79-100) Mean Corpuscular Hemoglobin 28 pg (25-35) Mean Corpuscular Hemoglobin Concent 33 g/dL (31-37) Red Cell Distribution Width 13.8 % (11.5-14.5) Platelet Count 343 x10^3/uL (140-400) Neutrophils (%) (Auto) 95 % (31-73) Lymphocytes (%) (Auto) 3 % (24-48) Monocytes (%) (Auto) 2 % (0-9) Eosinophils (%) (Auto) 0 % (0-3) Basophils (%) (Auto) 0 % (0-3) Neutrophils # (Auto) 14.8 x10^3uL (1.8-7.7) Lymphocytes # (Auto) 0.5 x10^3/uL (1.0-4.8) Monocytes # (Auto) 0.3 x10^3/uL (0.0-1.1) Eosinophils # (Auto) 0.0 x10^3/uL (0.0-0.7) Basophils # (Auto) 0.0 x10^3/uL (0.0-0.2) Segmented Neutrophils % 89 % (35-66) Band Neutrophils % 3 % (0-9) Lymphocytes % 7 % (24-48) Monocytes % 1 % (0-10) Platelet Estimate Adequate (ADEQUATE) Large Platelets Occ Polychromasia Slight Sodium Level 135 mmol/L (136-145) Potassium Level 4.0 mmol/L (3.5-5.1) Chloride Level 102 mmol/L (98-107) Carbon Dioxide Level 27 mmol/L (21-32) Anion Gap 6 (6-14) Blood Urea Nitrogen 11 mg/dL (7-20) Creatinine 0.7 mg/dL (0.6-1.0) Estimated GFR (Cockcroft-Gault) 85.4 BUN/Creatinine Ratio 16 (6-20) Glucose Level 121 mg/dL (70-99) Calcium Level 8.9 mg/dL (8.5-10.1) Total Bilirubin 0.2 mg/dL (0.2-1.0) Aspartate Amino Transf (AST/SGOT) 23 U/L (15-37) Alanine Aminotransferase (ALT/SGPT) 27 U/L (14-59) Alkaline Phosphatase 141 U/L (46-116) Total Protein 7.9 g/dL (6.4-8.2) Albumin 2.8 g/dL (3.4-5.0) Albumin/Globulin Ratio 0.5 (1.0-1.7) Microbiology 09/06/16 Urine Culture - Preliminary, Resulted 09/06/16 Urine Culture Result 1 (SUSANNAH) - Preliminary, Resulted Medications Current Medications Albuterol/ Ipratropium (Duoneb) 3 ml STK-MED ONCE .ROUTE ; Start 09/06/16 at 13: 15; Stop 09/06/16 at 13:16; Status DC Albuterol Sulfate (Ventolin) 2.5 mg STK-MED ONCE .ROUTE ; Start 09/06/16 at 13: 15; Stop 09/06/16 at 13:16; Status DC Albuterol/ Ipratropium (Duoneb) 3 ml 1X ONCE NEB Last administered on 13:22; Start 09/06/16 at 13:30; Stop 09/06/16 at 13:31; Status DC Albuterol/ Ipratropium (Duoneb) 3 ml 1X ONCE NEB ; Start 09/06/16 at 13:30; Stop 09/06/16 at 13:31; Status DC Fentanyl Citrate (Fentanyl 2ml Vial) 50 mcg PRN Q15MIN PRN IV PAIN GREATER THAN 3/10 Last administered on 09/06/16 14:34; Start 09/06/16 at 13:15; Stop at 18:35; Status DC Ondansetron HCl (Zofran) 4 mg 1X ONCE IV Last administered on 09/06/16 13:30 ; Start 09/06/16 at 13:30; Stop 09/06/16 at 13:31; Status DC Methylprednisolone Sodium Succinate (SOLU-Medrol 125MG VIAL) 125 mg 1X ONCE IV Last administered on 09/06/16 13:30; Start 09/06/16 at 13:30; Stop 09/06/16 at 13:31; Status DC Albuterol Sulfate (Ventolin) 2.5 mg 1X ONCE NEB Last administered on 13:28; Start 09/06/16 at 13:30; Stop 09/06/16 at 13:31; Status DC Ondansetron HCl (Zofran) 4 mg 1X ONCE IV ; Start 09/06/16 at 13:15; Stop at 13:17; Status DC Levofloxacin/ Dextrose (Levaquin Per Pharmacy) 1 each PRN DAILY PRN MC SEE COMMENTS; Start 09/06/16 at 17:00 Ondansetron HCl (Zofran) 4 mg PRN Q4HRS PRN IV NAUSEA/VOMITING; Start 09/06/16 at 17:15; Stop 09/07/16 at 17:14; Status DC Fentanyl Citrate (Fentanyl 2ml Vial) 50 mcg PRN Q2HR PRN IV PAIN Last administered on 09/07/16 04:41; Start 09/06/16 at 17:15; Stop 09/07/16 at 17:14 ; Status DC Sodium Chloride 1,000 ml @ 100 mls/hr Q10H IV Last administered on 09/07/16 13:58; Start 09/06/16 at 17:15; Stop 09/07/16 at 17:14; Status DC Acetaminophen (Tylenol) 650 mg PRN Q4HRS PRN PO FEVER; Start 09/06/16 at 17:15 ; Stop 09/07/16 at 17:14; Status DC Albuterol/ Ipratropium (Duoneb) 3 ml RTQID NEB Last administered on 09/07/16 15:23; Start 09/06/16 at 20:00; Stop 09/07/16 at 19:59; Status DC Methylprednisolone Sodium Succinate (SOLU-Medrol 40MG VIAL) 60 mg Q6HRS IV Last administered on 09/08/16 05:13; Start 09/06/16 at 18:00 Levofloxacin/ Dextrose 150 ml @ 150 mls/hr Q24H IV Last administered on 18:58; Start 09/06/16 at 17:30; Stop 09/07/16 at 09:54; Status DC Oxycodone/ Acetaminophen (Percocet 10/325) 1 tab PRN Q6HRS PRN PO PAIN Last administered on 09/06/16 20:19; Start 09/06/16 at 20:15 Alprazolam (Xanax) 1 mg QID PO Last administered on 09/08/16 09:18; Start at 21:00 Pantoprazole Sodium (Protonix) 40 mg DAILY PO Last administered on 09/08/16 09 :17; Start 09/07/16 at 09:00 Potassium Chloride (Klor-Con) 40 meq 1X ONCE PO Last administered on 08:42; Start 09/07/16 at 08:40; Stop 09/07/16 at 08:41; Status DC Levofloxacin/ Dextrose 50 ml @ 50 mls/hr Q24H IV Last administered on 16:57; Start 09/07/16 at 17:00 Levothyroxine Sodium (Synthroid) 150 mcg DAILY06 PO Last administered on 05:13; Start 09/07/16 at 11:00 Sertraline HCl (Zoloft) 50 mg DAILY PO Last administered on 09/08/16 09:17; Start 09/07/16 at 11:00 Sertraline HCl (Zoloft) 150 mg QHS PO Last administered on 09/07/16 20:38; Start 09/07/16 at 21:00 Sucralfate (Carafate) 1 gm PRN DAILY PRN PO HEARTBURN / GAS; Start 09/07/16 at 10:15 Non-Formulary Medication 1 puff DAILY IH ; Start 09/08/16 at 09:00; Status UNV Losartan Potassium (Cozaar) 100 mg DAILY PO Last administered on 09/07/16 11: 02; Start 09/07/16 at 11:00 Pramipexole Dihydrochloride (miraPEX) 0.375 mg QHS PO Last administered on 09/07 20:38; Start 09/07/16 at 21:00 Budesonide (Pulmicort) 0.5 mg RTBID NEB Last administered on 09/08/16 09:54; Start 09/07/16 at 11:00 Enoxaparin Sodium (Lovenox) 40 mg Q24H SQ Last administered on 09/08/16 11:24 ; Start 09/07/16 at 11:00 Active Scripts Active Reported Breo Ellipta 200-25 Mcg INH (Fluticasone/Vilanterol) 1 Each Blst.w.dev 1 Puff IH DAILY LAST DOSE GIVEN: DATE: TIME: NEXT DOSE DUE: DATE: TIME: Mirapex (Pramipexole Di-Hcl) 0.125 Mg Tablet 3 Tab PO QHS LAST DOSE GIVEN: DATE: TIME: NEXT DOSE DUE: DATE: TIME: Carafate (Sucralfate) 1 Gm Tablet 1 Tab PO PRN DAILY PRN Levothyroxine Sodium 150 Mcg Tablet 1 Tab PO DAILY06 LAST DOSE GIVEN: DATE: TIME: NEXT DOSE DUE: DATE: TIME: Nexium Capsule (Esomeprazole Magnesium) 40 Mg Capsule.dr 1 Cap PO DAILY LAST DOSE GIVEN: DATE: TIME: NEXT DOSE DUE: DATE: TIME: Zoloft (Sertraline Hcl) 50 Mg Tablet 1 Tab PO DAILY LAST DOSE GIVEN: DATE: TIME: NEXT DOSE DUE: DATE: TIME: Zoloft (Sertraline Hcl) 100 Mg Tablet 150 Mg PO QHS LAST DOSE GIVEN: DATE: TIME: NEXT DOSE DUE: DATE: TIME: Losartan Potassium 100 Mg Tablet 100 Mg PO DAILY LAST DOSE GIVEN: DATE: TIME: NEXT DOSE DUE: DATE: TIME: Alprazolam 1 Mg Tablet 1 Mg PO QID LAST DOSE GIVEN: DATE: TIME: NEXT DOSE DUE: DATE: TIME: Oxycodone-Acetaminophen 10-325 (Oxycodone Hcl/Acetaminophen) 1 Each Tablet 1 Each PO PRN Q6HRS PRN LAST DOSE GIVEN: DATE: TIME: NEXT DOSE DUE: DATE: TIME: Vitals/I & O Vital Sign - Last 24 Hours 09/07/16 09/07/16 09/07/16 09/07/16 15:25 15:34 19:45 20:00 Temp 98.2 98.4 Pulse 87 88 Resp 20 18 B/P (MAP) 125/59 (81) 137/63 (87) Pulse Ox 95 93 96 O2 Delivery Room Air Room Air Room Air Room Air 09/07/16 09/07/16 09/08/16 09/08/16 20:15 22:25 03:22 06:02 Temp 97.8 Pulse 74 75 84 Resp 20 18 B/P (MAP) 130/61 (84) 118/59 (78) Pulse Ox 94 94 94 O2 Delivery Room Air Room Air Room Air 09/08/16 09/08/16 09/08/16 09/08/16 08:00 09:21 09:55 10:23 Pulse 94 83 Resp 18 18 B/P (MAP) 108/63 (78) 101/59 (73) Pulse Ox 94 95 95 O2 Delivery Room Air Room Air Room Air Room Air 09/08/16 11:14 Temp 98.4 Intake and Output 09/07/16 09/07/16 09/08/16 15:00 23:00 07:00 Intake Total 660 ml 2053 ml 700 ml Output Total 400 ml Balance 260 ml 2053 ml 700 ml MELINA RICHARD MD Sep 08, 2016 12:15
[2016-09-08] MEDS ORDERED: IOHEXOL 300 MG/ML 75 ML VIAL. IV ONE (12:30)
--- NOTE | 2016-09-08 13:23 | RAD ---
One or more of the following individualized dose reduction techniques were utilized for this examination: 1. Automated exposure control 2. Adjustment of the mA and/or kV according to patient size 3. Use of iterative reconstruction technique CT arteriogram of the chest. History: Left-sided chest pain, short of air CT arteriogram was done using 75 mL Omnipaque 300 contrast. Sagittal and coronal MIP images were reconstructed. Mediastinal lymph nodes are upper normal in size. There is no pleural effusion. The visualized portions of liver and spleen are normal. Spleen is generous in size. Adrenal glands are normal. There is a small accessory spleen. There are bilateral areas of groundglass infiltrate and early consolidating infiltrates. Pneumonia is possible. Atypical pulmonary edema can have this pattern or aspiration or a hypersensitivity pneumonitis. There is no effusion. A pulmonary embolus is not identified. Impression: 1. Bilateral groundglass infiltrates. 2. Negative for a pulmonary embolus.
[2016-09-08 13:26] VITALS: BP 128/73
[2016-09-08] MEDS: PRAMIPEXOLE 0.25 MG TABLET. PO SCH (21:12)
[2016-09-08] MEDS: oxyCODONE/APAP 10/325 1 TAB TABLET PO PRN (21:12)
[2016-09-08] MEDS: SERTRALINE 100 MG TABLET. PO SCH (21:12)
[2016-09-08 21:52] VITALS: BP 134/65
[2016-09-09] MEDS: oxyCODONE/APAP 10/325 1 TAB TABLET PO PRN (00:28)
[2016-09-09] MEDS: LEVOTHYROXINE 150 MCG TABLET PO SCH (04:45)
[2016-09-09 04:48] VITALS: BP 120/68
[2016-09-09 06:13] LABS: BASO % 0 % (0-3); EOS % 0 % (0-3); HEMATOCRIT 37.4 % (36.0-47.0); HEMOGLOBIN 12.6 g/dL (12.0-15.5); LYMPH # 1.1 x10^3/uL (1.0-4.8); LYMPH % 12 % (24-48); MEAN CORPUSCULAR HEMOGLOBIN 28 pg (25-35); MEAN CORPUSCULAR HGB CONC 34 g/dL (31-37); MEAN CORPUSCULAR VOLUME 85 fL (79-100); MONO # 0.6 x10^3/uL (0.0-1.1); MONO % 7 % (0-9); NEUT # 7.6 x10^3uL (1.8-7.7); NEUT % 82 % (31-73); PLATELET COUNT 361 x10^3/uL (140-400); RED BLOOD COUNT 4.42 x10^6/uL (3.50-5.40); RED CELL DISTRIBUTION WIDTH 14.2 % (11.5-14.5); WHITE BLOOD COUNT 9.3 x10^3/uL (4.0-11.0)
[2016-09-09 06:14] LABS: CREATININE 0.7 mg/dL (0.6-1.0); GFR 85.4; POTASSIUM 4.2 mmol/L (3.5-5.1)
[2016-09-09] MEDS: PANTOPRAZOLE 40 MG TABLET. PO SCH (08:55)
[2016-09-09] MEDS: SERTRALINE 50 MG TABLET. PO SCH (08:56)
[2016-09-09] MEDS: LOSARTAN 50 MG TABLET. PO SCH (08:56)
[2016-09-09] MEDS: ALPRAZolam 0.5 MG TABLET PO SCH ×2 (08:57→12:42)
[2016-09-09] MEDS ORDERED: methylPREDNISolone SOD SUCC PF 125 MG/2 ML VIAL. IV SCH (09:00)
[2016-09-09] MEDS: BUDESONIDE 0.5 MG/2 ML NEBU NEB SCH (11:23)
[2016-09-09] MEDS: ENOXAPARIN 40 MG/0.4 ML DISP.SYRIN. SQ SCH (11:27)
[2016-09-09 11:32] VITALS: BP 121/66
[2016-09-09] MEDS ORDERED: PRED20TA PO (15:44)
[2016-09-09] MEDS ORDERED: LEVO750T31 PO (15:44)
--- NOTE | 2016-09-09 15:54 | PDOC3 ---
Discharge Summary Visit Information Date of Admission: Sep 06, 2016 Date of Discharge: Sep 09, 2016 Admitting Diagnosis: Shortness of breath and chest pain Admitting Diagnosis Comments copd exacerbation Chest pain Hyponatremia Hypertension Anemia Final Diagnosis Problems Medical Problems: (1) Chest pain Status: Acute (2) COPD with acute exacerbation Status: Acute (3) Urinary tract infection 4 Problems: Brief Hospital Course Allergies Allergies Coded Allergies Type Severity Reaction Last Updated Verified Penicillins Allergy Severe 02/12/14 No Sulfa (Sulfonamide Antibiotics) Allergy Severe 02/12/14 No cephalexin Allergy Severe 02/12/14 No Vital Signs Vital Signs Date Time Temp Pulse Resp B/P (MAP) Pulse Ox O2 Delivery O2 Flow Rate FiO2 09/09/16 11:32 84 12 121/66 (84) 96 Room Air 09/09/16 04:48 97.6 Lab Results Laboratory Tests Test 09/08/16 06:45 09/09/16 05:49 White Blood Count 15.7 x10^3/uL (4.0-11.0) 9.3 x10^3/uL (4.0-11.0) Red Blood Count 4.16 x10^6/uL (3.50-5.40) 4.42 x10^6/uL (3.50-5.40) Hemoglobin 11.8 g/dL (12.0-15.5) 12.6 g/dL (12.0-15.5) Hematocrit 35.3 % (36.0-47.0) 37.4 % (36.0-47.0) Mean Corpuscular Volume 85 fL (79-100) 85 fL (79-100) Mean Corpuscular Hemoglobin 28 pg (25-35) 28 pg (25-35) Mean Corpuscular Hemoglobin Concent 33 g/dL (31-37) 34 g/dL (31-37) Red Cell Distribution Width 13.8 % (11.5-14.5) 14.2 % (11.5-14.5) Platelet Count 343 x10^3/uL (140-400) 361 x10^3/uL (140-400) Neutrophils (%) (Auto) 95 % (31-73) 82 % (31-73) Lymphocytes (%) (Auto) 3 % (24-48) 12 % (24-48) Monocytes (%) (Auto) 2 % (0-9) 7 % (0-9) Eosinophils (%) (Auto) 0 % (0-3) 0 % (0-3) Basophils (%) (Auto) 0 % (0-3) 0 % (0-3) Neutrophils # (Auto) 14.8 x10^3uL (1.8-7.7) 7.6 x10^3uL (1.8-7.7) Lymphocytes # (Auto) 0.5 x10^3/uL (1.0-4.8) 1.1 x10^3/uL (1.0-4.8) Monocytes # (Auto) 0.3 x10^3/uL (0.0-1.1) 0.6 x10^3/uL (0.0-1.1) Eosinophils # (Auto) 0.0 x10^3/uL (0.0-0.7) 0.0 x10^3/uL (0.0-0.7) Basophils # (Auto) 0.0 x10^3/uL (0.0-0.2) 0.0 x10^3/uL (0.0-0.2) Segmented Neutrophils % 89 % (35-66) Band Neutrophils % 3 % (0-9) Lymphocytes % 7 % (24-48) Monocytes % 1 % (0-10) Platelet Estimate Adequate (ADEQUATE) Large Platelets Occ Polychromasia Slight Sodium Level 135 mmol/L (136-145) 136 mmol/L (136-145) Potassium Level 4.0 mmol/L (3.5-5.1) 4.2 mmol/L (3.5-5.1) Chloride Level 102 mmol/L (98-107) 102 mmol/L (98-107) Carbon Dioxide Level 27 mmol/L (21-32) 29 mmol/L (21-32) Anion Gap 6 (6-14) 5 (6-14) Blood Urea Nitrogen 11 mg/dL (7-20) 17 mg/dL (7-20) Creatinine 0.7 mg/dL (0.6-1.0) 0.7 mg/dL (0.6-1.0) Estimated GFR (Cockcroft-Gault) 85.4 85.4 BUN/Creatinine Ratio 16 (6-20) Glucose Level 121 mg/dL (70-99) 83 mg/dL (70-99) Calcium Level 8.9 mg/dL (8.5-10.1) 9.0 mg/dL (8.5-10.1) Total Bilirubin 0.2 mg/dL (0.2-1.0) Aspartate Amino Transf (AST/SGOT) 23 U/L (15-37) Alanine Aminotransferase (ALT/SGPT) 27 U/L (14-59) Alkaline Phosphatase 141 U/L (46-116) Total Protein 7.9 g/dL (6.4-8.2) Albumin 2.8 g/dL (3.4-5.0) Albumin/Globulin Ratio 0.5 (1.0-1.7) Brief Hospital Course The patient was admitted with SOB and CP She was diagnosed with COPD Exacerbation treated with steroids and antibiotics and bronchodilators and improved Her Na was low but gradually improved Chest pain was investigated with negative CT Angio of the chest for PE Discharge Information Condition at Discharge: Improved Follow Up: As Needed Disposition/Orders: D/C to Home Dischare Medications Current Medications Albuterol/ Ipratropium (Duoneb) 3 ml STK-MED ONCE .ROUTE ; Start 09/06/16 at 13: 15; Stop 09/06/16 at 13:16; Status DC Albuterol Sulfate (Ventolin) 2.5 mg STK-MED ONCE .ROUTE ; Start 09/06/16 at 13: 15; Stop 09/06/16 at 13:16; Status DC Albuterol/ Ipratropium (Duoneb) 3 ml 1X ONCE NEB Last administered on 13:22; Start 09/06/16 at 13:30; Stop 09/06/16 at 13:31; Status DC Albuterol/ Ipratropium (Duoneb) 3 ml 1X ONCE NEB ; Start 09/06/16 at 13:30; Stop 09/06/16 at 13:31; Status DC Fentanyl Citrate (Fentanyl 2ml Vial) 50 mcg PRN Q15MIN PRN IV PAIN GREATER THAN 3/10 Last administered on 09/06/16 14:34; Start 09/06/16 at 13:15; Stop at 18:35; Status DC Ondansetron HCl (Zofran) 4 mg 1X ONCE IV Last administered on 09/06/16 13:30 ; Start 09/06/16 at 13:30; Stop 09/06/16 at 13:31; Status DC Methylprednisolone Sodium Succinate (SOLU-Medrol 125MG VIAL) 125 mg 1X ONCE IV Last administered on 09/06/16 13:30; Start 09/06/16 at 13:30; Stop 09/06/16 at 13:31; Status DC Albuterol Sulfate (Ventolin) 2.5 mg 1X ONCE NEB Last administered on 13:28; Start 09/06/16 at 13:30; Stop 09/06/16 at 13:31; Status DC Ondansetron HCl (Zofran) 4 mg 1X ONCE IV ; Start 09/06/16 at 13:15; Stop at 13:17; Status DC Levofloxacin/ Dextrose (Levaquin Per Pharmacy) 1 each PRN DAILY PRN [facility] SEE COMMENTS; Start 09/06/16 at 17:00; Stop 09/08/16 at 12:10; Status DC Ondansetron HCl (Zofran) 4 mg PRN Q4HRS PRN IV NAUSEA/VOMITING; Start 09/06/16 at 17:15; Stop 09/07/16 at 17:14; Status DC Fentanyl Citrate (Fentanyl 2ml Vial) 50 mcg PRN Q2HR PRN IV PAIN Last administered on 09/07/16 04:41; Start 09/06/16 at 17:15; Stop 09/07/16 at 17:14 ; Status DC Sodium Chloride 1,000 ml @ 100 mls/hr Q10H IV Last administered on 09/07/16 13:58; Start 09/06/16 at 17:15; Stop 09/07/16 at 17:14; Status DC Acetaminophen (Tylenol) 650 mg PRN Q4HRS PRN PO FEVER; Start 09/06/16 at 17:15 ; Stop 09/07/16 at 17:14; Status DC Albuterol/ Ipratropium (Duoneb) 3 ml RTQID NEB Last administered on 09/07/16 15:23; Start 09/06/16 at 20:00; Stop 09/07/16 at 19:59; Status DC Methylprednisolone Sodium Succinate (SOLU-Medrol 40MG VIAL) 60 mg Q6HRS IV Last administered on 09/08/16 12:43; Start 09/06/16 at 18:00; Stop 09/08/16 at 12:52; Status DC Levofloxacin/ Dextrose 150 ml @ 150 mls/hr Q24H IV Last administered on 18:58; Start 09/06/16 at 17:30; Stop 09/07/16 at 09:54; Status DC Oxycodone/ Acetaminophen (Percocet 10/325) 1 tab PRN Q6HRS PRN PO PAIN Last administered on 09/08/16 21:12; Start 09/06/16 at 20:15 Alprazolam (Xanax) 1 mg QID PO Last administered on 09/09/16 12:42; Start at 21:00 Pantoprazole Sodium (Protonix) 40 mg DAILY PO Last administered on 09/09/16 08 :55; Start 09/07/16 at 09:00 Potassium Chloride (Klor-Con) 40 meq 1X ONCE PO Last administered on 08:42; Start 09/07/16 at 08:40; Stop 09/07/16 at 08:41; Status DC Levofloxacin/ Dextrose 50 ml @ 50 mls/hr Q24H IV Last administered on 16:57; Start 09/07/16 at 17:00; Stop 09/08/16 at 12:10; Status DC Levothyroxine Sodium (Synthroid) 150 mcg DAILY06 PO Last administered on 04:45; Start 09/07/16 at 11:00 Sertraline HCl (Zoloft) 50 mg DAILY PO Last administered on 09/09/16 08:56; Start 09/07/16 at 11:00 Sertraline HCl (Zoloft) 150 mg QHS PO Last administered on 09/08/16 21:12; Start 09/07/16 at 21:00 Sucralfate (Carafate) 1 gm PRN DAILY PRN PO HEARTBURN / GAS; Start 09/07/16 at 10:15 Non-Formulary Medication 1 puff DAILY IH ; Start 09/08/16 at 09:00; Status UNV Losartan Potassium (Cozaar) 100 mg DAILY PO Last administered on 09/09/16 08: 56; Start 09/07/16 at 11:00 Pramipexole Dihydrochloride (miraPEX) 0.375 mg QHS PO Last administered on 09/08 21:12; Start 09/07/16 at 21:00 Budesonide (Pulmicort) 0.5 mg RTBID NEB Last administered on 09/09/16 11:23; Start 09/07/16 at 11:00 Enoxaparin Sodium (Lovenox) 40 mg Q24H SQ Last administered on 09/09/16 11:27 ; Start 09/07/16 at 11:00 Levofloxacin/ Dextrose 150 ml @ 150 mls/hr Q24H IV Last administered on 12:42; Start 09/08/16 at 13:00 Iohexol (Omnipaque 300 Mg/ml) 75 ml 1X ONCE IV Last administered on 09/08/16 12:44; Start 09/08/16 at 12:30; Stop 09/08/16 at 12:33; Status DC Methylprednisolone Sodium Succinate (SOLU-Medrol 125MG VIAL) 125 mg DAILY IV Last administered on 09/09/16 08:55; Start 09/09/16 at 09:00 Active Scripts Active Reported Breo Ellipta 200-25 Mcg INH (Fluticasone/Vilanterol) 1 Each Blst.w.dev 1 Puff IH DAILY LAST DOSE GIVEN: DATE: TIME: NEXT DOSE DUE: DATE: TIME: Mirapex (Pramipexole Di-Hcl) 0.125 Mg Tablet 3 Tab PO QHS LAST DOSE GIVEN: DATE: TIME: NEXT DOSE DUE: DATE: TIME: Carafate (Sucralfate) 1 Gm Tablet 1 Tab PO PRN DAILY PRN Levothyroxine Sodium 150 Mcg Tablet 1 Tab PO DAILY06 LAST DOSE GIVEN: DATE: TIME: NEXT DOSE DUE: DATE: TIME: Nexium Capsule (Esomeprazole Magnesium) 40 Mg Capsule.dr 1 Cap PO DAILY LAST DOSE GIVEN: DATE: TIME: NEXT DOSE DUE: DATE: TIME: Zoloft (Sertraline Hcl) 50 Mg Tablet 1 Tab PO DAILY LAST DOSE GIVEN: DATE: TIME: NEXT DOSE DUE: DATE: TIME: Zoloft (Sertraline Hcl) 100 Mg Tablet 150 Mg PO QHS LAST DOSE GIVEN: DATE: TIME: NEXT DOSE DUE: DATE: TIME: Losartan Potassium 100 Mg Tablet 100 Mg PO DAILY LAST DOSE GIVEN: DATE: TIME: NEXT DOSE DUE: DATE: TIME: Alprazolam 1 Mg Tablet 1 Mg PO QID LAST DOSE GIVEN: DATE: TIME: NEXT DOSE DUE: DATE: TIME: Oxycodone-Acetaminophen 10-325 (Oxycodone Hcl/Acetaminophen) 1 Each Tablet 1 Each PO PRN Q6HRS PRN LAST DOSE GIVEN: DATE: TIME: NEXT DOSE DUE: DATE: TIME: Patient Instructions Patient Instuctions The patient was instructed to follow up with her PCP FOR HER ANEMIA AND ELEVATED ALKALINE PHOSPHATASE GRADY COBOS MD Sep 09, 2016 15:54
== END 2016-09-09 16:45 | disposition home or self-care (01) | DRG 191 ==
LOC: ER 12:29 → ICU 17:07
PROVIDERS: ADMIT Family Medicine; ATTEND Family Medicine
DX: J44.1 Chronic obstructive pulmonary disease with (acute) exacerbation (principal); E44.1 Mild protein-calorie malnutrition; E87.1 Hypo-osmolality and hyponatremia; N39.0 Urinary tract infection, site not specified; F17.210 Nicotine dependence, cigarettes, uncomplicated; D64.9 Anemia, unspecified; Z96.659 Presence of unspecified artificial knee joint; M19.90 Unspecified osteoarthritis, unspecified site; I10 Essential (primary) hypertension; Z96.652 Presence of left artificial knee joint; F41.9 Anxiety disorder, unspecified; Z60.2 Problems related to living alone; Z88.1 Allergy status to other antibiotic agents; Z88.0 Allergy status to penicillin; Z88.2 Allergy status to sulfonamides; Z90.49 Acquired absence of other specified parts of digestive tract; Z98.51 Tubal ligation status; Z68.31 Body mass index [BMI] 31.0-31.9, adult
CPT/HCPCS: 36415; 71010; 71275; 80048; 80053; 81001; 82553; 82570; 83880; 84300; 84443; 84484; 85007; 85027; 87086; 87186; 87641; 93005; 94640; 96374; 96375; 96376; 99406; J1650; J1956; J2405; J2920; J2930; J3010; J7613; J7620; J7626; Q9967; 99285-25; J7030

== ENCOUNTER 2016-10-07 15:54 | Inpatient (IN) | payer MEDICARE, OTHER ==
[~2016-10-07] VITALS: Ht 157.5 cm; Wt 78.5 kg
[~2016-10-07 15:54] MED LIST changes: +ESOM40CA PO; +FLUT1BLS IH; +LEVO150T5 PO; +LEVO750T31 PO; +PRAM0.125 PO; +PRED20TA PO; +SERT50TA PO; +SUCR1TAB35 PO
[2016-10-07] MEDS ORDERED: IV NORMAL SALINE 1,000ML 1,000 ML IV SCH (16:19)
--- NOTE | 2016-10-07 16:55 | RAD ---
Chest radiograph 10/07/2016 at 1625 hours Indication: Left upper quadrant pain Comparison: Chest radiograph 09/06/2016 Technique: PA and lateral views of the chest are provided. Findings: Similar borderline appearance of the cardiomediastinal silhouette. There is a small left pleural effusion which appears to track along the left lateral lung margin. No pulmonary vascular congestion or pneumothorax. Right lung is clear. Anterior cervical discectomy and fusion hardware is identified in the lower cervical spine. Impression: New small left pleural effusion with a loculated component along the left lateral lung margin.
[2016-10-07] MEDS: fentaNYL PF 100 MCG/2 ML VIAL IV PRN ×3 (16:57→22:12)
[2016-10-07] MEDS ORDERED: methylPREDNISolone SOD SUCC PF 125 MG/2 ML VIAL. IV ONE (17:00)
[2016-10-07] MEDS ORDERED: IPRATRPIUM/ALBUTEROL 0.5/2.5MG 3 ML NEBU. NEB ONE (17:00)
[2016-10-07] MEDS ORDERED: ACETAMINOPHEN 325 MG TABLET PO ONE (17:00)
--- NOTE | 2016-10-07 17:02 | PHYS DOC ---
Text Text Patient's CT scan/CTA of the chest reveals a small partially loculated left pleural effusion. Mild emphysematous changes were seen in both lungs. There was dependent atelectasis in both lungs. Left greater than right. There was no area of consolidation. There is a 3 mm calcified granuloma involving the left upper lobe. There is no pneumothorax. I discussed results with the patient. Patient is requested to be admitted to [facility] and is requesting that we not transfer her to [facility]. Patient reports that she prefers being here. I have discussed the case with Dr. Matthews and we will admit the patient for IV antibiotics and reevaluate the loculation. Patient has been started on Vanco and Levaquin . Patient is allergic to sulfa drugs penicillins and cephalosporins. (JAQUI LUJAN MD) General Chief Complaint: ABDOMINAL PAIN Stated Complaint: ABDOMINAL PAIN Time Seen by MD: 15:56 Source: patient Exam Limitations: no limitations Problems: (MAICO CERVANTES DO) Time Seen by MD: 18:02 Problems: (JAQUI LUJAN MD) History of Present Illness Initial Comments Patient is a 61-year-old female who comes to the emergency department complaining of left-sided lower chest/upper abdominal pain. Patient states she has severe 10 out of 10 left lower chest/left upper quadrant abdominal pain described as sharp and stabbing with associated shortness of breath and fevers. Her pain is much worse with taking deep breaths and lying on her left side. She's had intermittent body aches and states that last night her fever was 102. She says she was trying to talk about the pain however within the last 24 hours it has worsened and shortly before coming to the emergency department she took a "pain pill" at home without any relief. Patient was admitted to [facility] September 06- with similar symptoms. Her discharge diagnosis was COPD exacerbation and urinary tract infection, her symptoms improved throughout that hospitalization steroids, antibiotics, bronchodilators. She was fully evaluated with CT angiogram of the chest and ruled out for acute [place]. Patient states that upon discharge she was still having left-sided discomfort /. Patient says that the discomfort has been persistent but tolerable and she actually had a follow-up appointment with her primary care physician Consuelo Faye. She denies any cough or emesis and denies any trauma or exertional activities. ED vitals: 100.9, 107, 20, 139/93, 93% room air Timing/Duration: constant, getting worse Severity: severe Modifying Factors: worse with movement Associated Symptoms: chest pain, diaphoresis, fever/chills, malaise, shortness of breath, other (MAICO CERVANTES DO) Allergies: Coded Allergies: Penicillins (Verified Allergy, Severe, 10/07/16) Sulfa (Sulfonamide Antibiotics) (Verified Allergy, Severe, 10/07/16) cephalexin (Verified Allergy, Severe, 10/07/16) Past Medical History Medical History: other (asthma, COPD) Surgical History: other (appendectomy, cervical fusion, cholecystectomy, bilateral tubal ligation) (MAICO CERVANTES DO) Social History Smoker: cigarettes (since last month hospitalization she has cut down to one half pack per week. Low) Alcohol: none Drugs: none (MAICO CERVANTES DO) Review of Systems Constitutional: see HPI Respiratory: see HPI Cardiovascular: see HPI Gastrointestinal: see HPI, denies diarrhea, denies nausea, denies vomiting Genitourinary: denies dysuria, denies frequency, denies hematuria Musculoskeletal: see HPI, denies back pain, denies joint swelling, denies neck pain Psychiatric/Neurological: denies numbness, denies paresthesia, denies weakness (MAICO CERVANTES DO) Physical Exam General Appearance: moderate distress, obese Eyes: bilateral eye normal inspection, bilateral eye PERRL, bilateral eye EOMI Ear, Nose, Throat: hearing grossly normal, normal ENT inspection Neck: non-tender, supple Respiratory: normal breath sounds, no respiratory distress, other (left lower chest wall tenderness, shallow breathing due to pain with deep inspiration noted ) Cardiovascular: normal peripheral pulses, regular rate, rhythm Gastrointestinal: soft (mild left upper quadrant tenderness without rebound guarding or mass abdomen is nondistended bowel sounds are normal) Back: no vertebral tenderness, CVA tenderness (L) (mild) Extremities: normal range of motion, non-tender 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 Interpreted by me. PATIENT: KAI AMEZCUA ACCOUNT: [id number] : 1955 LOCATION: ER AGE: 61 SEX: F EXAM STATUS: REG ER ORD. PHYSICIAN: MAICO CERVANTES DO REASON: LUQ pain, COPD PROCEDURE: CHEST PA & LATERAL Chest radiograph 10/07/2016 at 1625 hours Indication: Left upper quadrant pain Comparison: Chest radiograph 09/06/2016 Technique: PA and lateral views of the chest are provided. Findings: Similar borderline appearance of the cardiomediastinal silhouette. There is a small left pleural effusion which appears to track along the left lateral lung margin. No pulmonary vascular congestion or pneumothorax. Right lung is clear. Anterior cervical discectomy and fusion hardware is identified in the lower cervical spine. Impression: New small left pleural effusion with a loculated component along the left lateral lung margin. DICTATED AND SIGNED BY: DAYSI AZAR MD DATE: 10/07/16 165 CC: CONSUELO FAYE; MAICO CERVANTES DO ~ Pertinent labs: White blood cells 7.8, hemoglobin 11.5, d-dimer 2.82, BNP 210 1754: Patient rechecked she's feeling better after receiving fentanyl IV. She states that she still has some discomfort with deep breaths but that her pain had nearly completely resolved until she got up to use the restroom. I discussed the initial findings including a new left pleural effusion with loculation and elevated d-dimer. CT angiogram ordered, patient will need inpatient treatment will await CT results. Patient received Tylenol 650 mg by mouth, Levaquin and fentanyl IV, DuoNeb and a 1 L normal saline IV bolus. 1757: Patient will be signed out to Dr. Lujan at 1800 shift change. See his documentation for further results and patient disposition. (MAICO CERVANTES DO) Departure Disposition: ADMITTED INPATIENT Condition: STABLE Departure Departure: Impression: Primary Impression: Febrile illness, acute Additional Impression: Loculated pleural effusion Disposition: ADMITTED INPATIENT Admitting Physician: Tatiana Otto (JAQUI LUJAN MD) Condition: STABLE MAICO CERVANTES DO Oct 07, 2016 17:02 JAQUI LUJAN MD Oct 07, 2016 20:11
[2016-10-07 17:10] LABS: BASO # 0.1 x10^3/uL (0.0-0.2); BASO % 1 % (0-3); EOS % 0 % (0-3); HEMATOCRIT 33.7 % (36.0-47.0); HEMOGLOBIN 11.5 g/dL (12.0-15.5); LYMPH # 1.2 x10^3/uL (1.0-4.8); LYMPH % 16 % (24-48); MEAN CORPUSCULAR HEMOGLOBIN 28 pg (25-35); MEAN CORPUSCULAR HGB CONC 34 g/dL (31-37); MEAN CORPUSCULAR VOLUME 82 fL (79-100); MONO # 0.5 x10^3/uL (0.0-1.1); MONO % 7 % (0-9); NEUT % 76 % (31-73); PLATELET COUNT 438 x10^3/uL (140-400); RED BLOOD COUNT 4.12 x10^6/uL (3.50-5.40); RED CELL DISTRIBUTION WIDTH 14.6 % (11.5-14.5); WHITE BLOOD COUNT 7.8 x10^3/uL (4.0-11.0)
--- NOTE | 2016-10-07 17:10 | EKG ---
[address] [address] Test Date: 2016-10-07 Test Time: 16:52:08 Pat Name: KAI AMEZCUA Department: Room: Gender: F Tenter: : 1955 Requested By: MAICO CERVANTES Order Number: [id number] Reading MD: Measurements Intervals [place] Rate: 95 P: 33 IL: 148 QRS: 14 QRSD: 76 T: 31 QT: 402 QTc: 509 Interpretive Statements SINUS RHYTHM QRS(T) CONTOUR ABNORMALITY CONSIDER ANTEROLATERAL MYOCARDIAL DAMAGE PROLONGED QT RI6.01 Unconfirmed report No previous ECG available for comparison
[2016-10-07 17:23] LABS: ALBUMIN/GLOBULIN RATIO 0.7 (1.0-1.7); CALCIUM 8.5 mg/dL (8.5-10.1); CREATININE 0.8 mg/dL (0.6-1.0); GFR 73.2; TOTAL BILIRUBIN 0.2 mg/dL (0.2-1.0); TOTAL PROTEIN 7.3 g/dL (6.4-8.2)
[2016-10-07 17:24] LABS: POTASSIUM 3.8 mmol/L (3.5-5.1)
[2016-10-07 18:02] LABS: BILIRUBIN,URINE NEG (NEG); CLARITY,URINE CLEAR; COLOR,URINE YELLOW; GLUCOSE,URINE NEG (NEG); NITRITE,URINE NEG (NEG); UROBILINOGEN,URINE 0.2 mg/dL (0.2 mg/dL)
[2016-10-07 18:03] LABS: BACTERIA,URINE 0 /HPF (0-FEW); SQUAMOUS EPITHELIAL CELL,UR MANY /LPF; WBC,URINE OCC /HPF (0-4)
[2016-10-07] MEDS ORDERED: IOHEXOL 300 MG/ML 75 ML VIAL. IV ONE (18:15)
--- NOTE | 2016-10-07 19:45 | RAD ---
CTA scan of the Chest with Contrast (Pulmonary Embolism protocol) 10/07/2016 Clinical History: Chest pain with elevated d-dimer. Technique: After the intravenous administration of 75 cc of Omnipaque 300, contiguous, 0.625 mm axial sections were obtained through the chest. 2 mm mm axial and 3D MIP coronal and sagittal reconstructed images were obtained. One or more of the following individualized dose reduction techniques were utilized for this study: 1. Automated exposure control. 2. Adjustment of the mA and/or kV according to patient size. 3. Use of iterative reconstruction technique. Findings: Suboptimal opacification of pulmonary arteries with contrast is seen. No definite filling defect is seen within the major branches of either pulmonary artery. There is no definite CT evidence of pulmonary embolism. The heart is mildly enlarged. There is a small pericardial effusion. Atherosclerotic calcification of the thoracic aorta and its branches is noted. The thoracic aorta is tortuous but tapers normally. There is a small partially loculated left pleural effusion. Mild emphysematous changes are seen involving both lungs. Dependent atelectasis is seen involving both lungs, left greater than right. No area of consolidation is seen. A 3 mm calcified granuloma is seen involving the left upper lobe. No pneumothorax is noted. The patient has a history of a palpable lump in the left breast. No obvious abnormality is seen on CT in this area. This should be further evaluated by mammography and/or ultrasound. Impression: There is no definite CT evidence of pulmonary embolism. Electronically signed by: Quintin Taylor MD (10/07/2016 7:41 PM) [facility]
[2016-10-07 19:57] LABS: INFLUENZA A PATIENT NEGATIVE (NEGATIVE); INFLUENZA B PATIENT NEGATIVE (NEGATIVE)
[2016-10-07] MEDS ORDERED: ONDANSETRON PF 4 MG/2 ML VIAL. IV PRN (20:15)
[2016-10-07] MEDS ORDERED: AZITHROMYCIN 500 MG in IV NORMAL SALINE 250ML 250 ML IV ONE (20:15)
[2016-10-07] MEDS ORDERED: ACETAMINOPHEN 325 MG TABLET PO PRN (20:15)
[2016-10-07] MEDS ORDERED: CLINDAMYCIN 600MG PREMIX 50 ML IV ONE (20:15)
[2016-10-07] MEDS ORDERED: VANCOMYCIN 2 GM in IV NORMAL SALINE 500ML 500 ML IV ONE (20:30)
[2016-10-07 22:00] VITALS: BP 134/70
[2016-10-07] MEDS: VANCOMYCIN PER PHARMACY MC PRN (22:29)
[2016-10-07] MEDS ORDERED: PRAMIPEXOLE 0.5 MG TABLET. PO SCH (23:45)
[2016-10-08] MEDS: PRAMIPEXOLE 0.25 MG TABLET. PO SCH ×2 (00:34→20:32)
[2016-10-08] MEDS: ALPRAZolam 0.5 MG TABLET PO SCH ×5 (00:34→20:32)
--- NOTE | 2016-10-08 03:33 | ACF ---
Admission Criteria Forms PLEURAL EFFUSION Clinical Indications for Admission to Inpatient Care (Place 'X' for any and all applicable criteria): Admission is indicated for 1 or more of the following (1)(2)(3): [ ]I. Pneumonia-related effusion requiring drainage as indicated by 1 or more of the following [A]: [ ]a) Large pleural effusion (symptomatic or greater than one-half of hemithorax) [ ]b) Loculated effusion [ ]c) Pleural fluid analysis results, including ANY ONE of the following: [ ]i) Positive Gram stain or culture for bacteria [ ]ii) Pus [ ]iii) pH less than 7.20 [ ]d) Parapneumonic effusion with glucose less than 60 mg/dL (3.33 mmol/L) [X]II. Inpatient admission required rather than observation care (Also use Pleural Effusion: Observation Care criteria as appropriate) because of 1 or more of the following: [ ]1) Hemodynamic instability [ ]2) Respiratory findings (Tachypnea, dyspnea) that persist despite observation care treatment [ ]3) Hypoxemia or hypercapnia that persists despite observation care treatment [ ]4) Complication of drainage (e.g., pneumothorax) that requires inpatient care [ ]5) Etiology that requires inpatient care (e.g., pulmonary embolism, trauma) [X]6) Severe pain requiring acute inpatient management [ ]7) Chest tube placement with active evacuation (eg, suction, drainage) [ ]8) Pulmonary artery catheter monitoring [ ]9) Epidural analgesia(7) [ ]10) Immediate inpatient surgery [ ]11) Other condition, treatment, or monitoring requiring inpatient admission [ ]III. Hemothorax [ ]IV. Empyema [ ]V. Pleural effusion with concomitant pneumothorax [ ]. Recurrent or malignant pleural effusion requiring pleurodesis (4) [ ]VII. Respiratory distress Extended stay beyond goal length of stay may be needed for (27)(28): [ ]a) Empyema or complicated parapneumonic effusion (24)(29) [ ]b) Malignant pleural effusion (4) [ ]c) Pleural effusion due to trauma or perforated esophagus [ ]d) Pleural effusion due to pulmonary embolism (30) [ ]e) Clinically significant re-expansion pulmonary edema [ ]f) Hemothorax [ ]g) Renal failure [ ]h) Complications of thoracentesis, thoracostomy tube, or pleural cath. placement [ ]j) Trapped lung (e.g., benign or malignant thickened pleura preventing lung re-expansion) (31) [ ]i) Underlying etiology necessitates ongoing inpatient care (e.g., pneumonia, heart failure, malignancy) The original [facility] [employer] content created by [facility] has been revised. The portions of the content which have been revised are identified through the use of italic text, and [facility] has neither reviewed nor approved the modified material. All other unmodified content is copyright [facility]. Please see references footnoted in the original [facility] edition 2014 Admission Criteria Met?: Yes JEFFERSON GUAMAN Oct 08, 2016 03:33
[2016-10-08] MEDS: fentaNYL PF 100 MCG/2 ML VIAL IV PRN (03:36)
[2016-10-08] MEDS ORDERED: IPRATRPIUM/ALBUTEROL 0.5/2.5MG 3 ML NEBU. ONE (05:15)
[2016-10-08] MEDS: IPRATRPIUM/ALBUTEROL 0.5/2.5MG 3 ML NEBU. NEB SCH ×4 (05:30→20:55)
[2016-10-08 05:45] VITALS: BP 108/64
[2016-10-08 06:33] LABS: BASO % 0 % (0-3); EOS % 0 % (0-3); HEMATOCRIT 33.6 % (36.0-47.0); HEMOGLOBIN 11.4 g/dL (12.0-15.5); LYMPH # 1.1 x10^3/uL (1.0-4.8); LYMPH % 15 % (24-48); MEAN CORPUSCULAR HEMOGLOBIN 28 pg (25-35); MEAN CORPUSCULAR HGB CONC 34 g/dL (31-37); MEAN CORPUSCULAR VOLUME 83 fL (79-100); MONO # 0.3 x10^3/uL (0.0-1.1); MONO % 5 % (0-9); NEUT # 5.7 x10^3uL (1.8-7.7); NEUT % 80 % (31-73); PLATELET COUNT 397 x10^3/uL (140-400); RED BLOOD COUNT 4.08 x10^6/uL (3.50-5.40); RED CELL DISTRIBUTION WIDTH 14.8 % (11.5-14.5); WHITE BLOOD COUNT 7.1 x10^3/uL (4.0-11.0)
[2016-10-08 06:54] LABS: ALBUMIN 2.7 g/dL (3.4-5.0); ALBUMIN/GLOBULIN RATIO 0.6 (1.0-1.7); CALCIUM 8.3 mg/dL (8.5-10.1); CREATININE 0.8 mg/dL (0.6-1.0); GFR 73.2; TOTAL BILIRUBIN 0.2 mg/dL (0.2-1.0)
[2016-10-08] MEDS ORDERED: ALPRAZolam 0.5 MG TABLET ONE ×5 (09:00)
[2016-10-08] MEDS: VANCOMYCIN 1.25 GM in IV NORMAL SALINE 250ML 250 ML IV SCH ×2 (10:39→21:47)
[2016-10-08 10:54] VITALS: BP 116/72
[2016-10-08] MEDS ORDERED: oxyCODONE/APAP 10/325 1 TAB TABLET PO PRN (13:30)
[2016-10-08] MEDS ORDERED: SUCRALFATE 1 GM TABLET. PO PRN (13:30)
[2016-10-08] MEDS ORDERED: predniSONE 20 MG TABLET PO ONE (14:00)
[2016-10-08] MEDS ORDERED: NICOTINE 21MG PATCH. TD SCH (14:00)
[2016-10-08] MEDS: NICOTINE 7MG PATCH. TD SCH (14:10)
[2016-10-08 14:43] VITALS: BP 118/74
--- NOTE | 2016-10-08 14:43 | HP ---
ADMIT DATE: 10/08/2016 HISTORY OF PRESENT ILLNESS: The patient closer there is a 61-year-old female patient who came to the Emergency Room complaining of left-sided chest pain, seems to be pleuritic, aggravated by taking deep breaths movement, as well as cough. She also complained of fever up to 102.5. She was evaluated in the Emergency Room, was found to have left-sided loculated pleural effusion, probably dependent atelectasis in both lungs, left greater than right, although it is no area of consolidation. She apparently was here in May this year. At that time, she was admitted with COPD exacerbation as well as hyponatremia as well as urinary tract infection. She was basically admitted and started on IV antibiotics including Levaquin and vancomycin given that she is allergic to PENICILLIN AND CEPHALOSPORIN. PAST MEDICAL HISTORY: Significant for: 1. COPD. 2. Hypertension. 3. Hyperlipidemia. 4. Hypothyroidism. 5. Generalized osteoarthritis. PAST SURGICAL HISTORY: 1.Significant for left total knee arthroplasty. 2.Bladder suspension surgery. 3.Cholecystectomy. 4.Tubal ligation. 5.Appendectomy. ALLERGIES: She is allergic to PENICILLIN AND SULFA drugs as well as CEPHALEXIN. MEDICATIONS: She is currently on following medications: She is on alprazolam 1 mg q.i.d., Nexium capsule 40 mg once a day, Breo Ellipta 220/25 one pump once a day, levothyroxine 150 mcg once a day, losartan potassium 100 mg once a day, Oxycodone/APAP 10/325 mg one every 6 hours as needed, pramipexole or Mirapex 0.125 mg 3 tablets p.o. at bedtime, prednisone 40 mg once a day, sertraline 150 mg at bedtime, sertraline 50 mg daily, sucralfate 1 gram p.o. daily p.r.n. FAMILY HISTORY: She has 1 brother and 2 sisters, one of her sisters is known to have COPD. Her mother at age of 60 because of lung cancer. Her father at the age of 25 because of brain tumor. SOCIAL HISTORY: She is , has 1 son and 1 daughter. She continued to smoke. Does not drink alcohol or use any recreational drugs. She is on disability. REVIEW OF SYSTEMS: As per history of present illness. PHYSICAL EXAMINATION: GENERAL: On arrival to the Emergency Room, she was afebrile, pale, but not jaundiced, cyanosis, or thyromegaly. No jugular venous distention. No limb edema. VITAL SIGNS: Her heart rate was 107, blood pressure was 139/93, temperature was 100.9, respiratory rate 20, and oxygen saturation was 93% on room air. HEAD, EYES, EARS, NOSE and THROAT: Showed normocephalic, atraumatic. NECK: Supple. HEART: Showed normal first and second heart sounds with no gallop, rub or murmur. CHEST: Shows central trachea, equal bilateral chest expansion and air entry, vesicular sounds. Very few scattered rhonchi. No crepitation. ABDOMEN: Distended, soft, nontender. No guarding or rigidity. No organomegaly. Hernial orifices intact. Bowel sounds normal. NEUROLOGIC: She was awake, alert, responding appropriately. Cranial nerves intact. EXTREMITIES: She moves extremities without difficulty. She ambulates without assistance or assistive devices. LABORATORY DATA: While in the Emergency Room, she had lab work showed a white cell count 7800, hemoglobin 11.5, hematocrit 33.7, MCV 82 and platelet count of 438,000. Her chemistry showed a serum sodium 136, potassium 3.8, chloride 99, bicarbonate 26, anion gap of 11, BUN 16, creatinine 0.8, estimated GFR was 73 mL per minute. Her glucose 105, calcium was 8.5. Total bilirubin, AST, ALT were normal. Alkaline phosphatase slightly elevated. Her CK was 45. CK-MB was less than 0.017. Beta natriuretic peptide was 210. Total protein was 7.3, albumin 3. Her D-dimer was high at 2.82 mg/dL. Urinalysis essentially unremarkable. The urine was negative for nitrites and leukocyte esterase. There were no wbc's, and no bacteria. Her influenza A and B were negative. Her chest x-ray showed new small left-sided pleural effusion with loculated component along the left lateral lung margin. She had a CT angio of the chest, which basically showed that there is no definite CT evidence of pulmonary embolism. There is small partially loculated left pleural effusion, mild emphysematous changes are seen involving both lungs dependent atelectasis involving both lungs, left greater than right. No area of consolidation is seen. A 3 mm calcified granuloma seen involving the left upper lobe. No pneumothorax noted. The patient has a history of palpable lump in the left breast. No obvious abnormality seen on the CT scan and this area should be further evaluated by mammogram and/or ultrasound. ASSESSMENT AND PLAN: In summary, this is a 61-year-old female patient with known COPD and emphysematous changes in both lungs. She came with left-sided chest pain, fever. She has left-sided loculated pleural effusion, questionable empyema. She IS allergic to SULFA, PENICILLIN, and CEPHALEXIN. She is now on vancomycin as well as levofloxacin. We will continue with antibiotic. Continue with pain management. We reconciled all her medications and monitor her closely and if there is any worsening her symptoms, she might need to be transferred to [facility] to consult to cardiothoracic surgeon. GRADY COBOS MD DR: SHRUTHI/bartolome JOB#: [id number] / [id number]
--- NOTE | 2016-10-08 17:13 | RAD ---
Left breast ultrasound 10/08/2016 at 1607 hours Indication: Palpable lump for 17 years. Comparison: CT of chest 10/07/2016 Technique: Sonographic evaluation of the left breast was performed. Findings: Sonographic evaluation of the left breast was performed at the 6:00, 7:00 and 8:00 positions in the region of palpable abnormality. Normal fibroglandular tissue is identified. A single duct is identified at the 6:00 position. No suspicious mass. No shadowing microcalcifications or areas of architectural distortion. Impression: No sonographic abdominal is identified in the region of concern. Correlation with diagnostic mammogram is recommended.
[2016-10-08] MEDS ORDERED: IV NORMAL SALINE 250ML 250 ML ONE (18:02)
[2016-10-08 18:43] VITALS: BP 125/77
[2016-10-08] MEDS: BUDESONIDE 0.5 MG/2 ML NEBU NEB SCH (20:54)
[2016-10-08] MEDS ORDERED: SERTRALINE 100 MG TABLET. PO SCH (21:00)
[2016-10-08] MEDS ORDERED: PRAMIPEXOLE 0.25 MG TABLET. PO SCH (21:00)
[2016-10-08 22:40] VITALS: BP 113/67
[2016-10-09 05:23] VITALS: BP 147/98
[2016-10-09] MEDS: IPRATRPIUM/ALBUTEROL 0.5/2.5MG 3 ML NEBU. NEB SCH (05:52)
[2016-10-09] MEDS ORDERED: LEVOTHYROXINE 150 MCG TABLET PO SCH (06:00)
[2016-10-09 06:40] LABS: HEMATOCRIT 32.8 % (36.0-47.0); RED BLOOD COUNT 3.95 x10^6/uL (3.50-5.40); RED CELL DISTRIBUTION WIDTH 14.6 % (11.5-14.5); WHITE BLOOD COUNT 7.5 x10^3/uL (4.0-11.0)
[2016-10-09 06:54] LABS: ALBUMIN 2.8 g/dL (3.4-5.0); ALBUMIN/GLOBULIN RATIO 0.7 (1.0-1.7); C REACTIVE PROTEIN 38.9 mg/L (0-3.3); CALCIUM 8.5 mg/dL (8.5-10.1); CREATININE 0.7 mg/dL (0.6-1.0); GFR 85.4; POTASSIUM 3.6 mmol/L (3.5-5.1); TOTAL BILIRUBIN 0.2 mg/dL (0.2-1.0)
[2016-10-09] MEDS ORDERED: PANTOPRAZOLE 40 MG TABLET. PO SCH (07:30)
[2016-10-09] MEDS: ALPRAZolam 0.5 MG TABLET PO SCH ×2 (08:06→12:52)
[2016-10-09] MEDS: NICOTINE 7MG PATCH. TD SCH (08:08)
[2016-10-09] MEDS ORDERED: SERTRALINE 50 MG TABLET. PO SCH (09:00)
[2016-10-09] MEDS ORDERED: levoFLOXacin 750 MG TABLET PO SCH (09:00)
[2016-10-09] MEDS ORDERED: LOSARTAN 50 MG TABLET. PO SCH (09:00)
[2016-10-09] MEDS ORDERED: ALPRAZolam 0.5 MG TABLET ONE (09:00)
[2016-10-09] MEDS ORDERED: predniSONE 20 MG TABLET PO SCH ×2 (09:00)
[2016-10-09] MEDS: BUDESONIDE 0.5 MG/2 ML NEBU NEB SCH (09:35)
[2016-10-09 09:39] LABS: VANC TR 14.3 mcg/mL (10.0-20.0)
--- NOTE | 2016-10-09 09:43 | PN ---
DATE: 10/08/2016 SUBJECTIVE: The patient is resting slightly propped up in bed, in no apparent distress. She is awake, alert. On questioning her, she said the pain is much less now. She is now able to take a deep breath, move around without any difficulty. She can also lie slightly flat. Denied any shortness of breath. OBJECTIVE: GENERAL: When I examined her, she looked well and was clearly in no apparent respiratory distress, pale, but no jaundice, cyanosis, lymphadenopathy, or thyromegaly. No jugular venous distention. No limb edema. VITAL SIGNS: Her heart rate was 96, blood pressure was 116/72, temperature was 98, respiratory rate was 18 and oxygen saturation was 94%. HEENT: Normocephalic, atraumatic. NECK: Supple. HEART: Showed normal first and second heart sounds. No gallop, rub or murmur. CHEST: Showed central trachea, equally reduced expansion, reduced air entry, vesicular breath sounds. I could not really appreciate any crepitation or rhonchi. ABDOMEN: Distended, soft, nontender. NEUROLOGIC: She was awake, alert, responding appropriately. Cranial nerves intact. She moves extremities without difficulty. She ambulates without assistance or assistive devices. Her intake and output were incompletely recorded. LABORATORY DATA: As of this morning showed a white cell count of 7100, hemoglobin 11.4, hematocrit 33.6, MCV 83, and platelet count 197,000. Her D-dimer was high at 2.82. Chemistry today showed a serum sodium of 138, potassium 4, chloride 104, bicarbonate 23, anion gap of 11, BUN 9, creatinine 0.8, estimated GFR was 73 mL per minute. Her glucose was 131. Calcium was 8.3. Total bilirubin, AST, ALT were normal. Alkaline phosphatase slightly elevated. Total protein is 7, albumin 2.7. ASSESSMENT: Left-sided loculated pleural effusion versus empyema. My plan is to continue with IV antibiotic. Continue with steroids and pain medication as well as bronchodilator. Repeat all her lab work tomorrow and decide on further management accordingly. GRADY COBOS MD DR: SHRUTHI/bartolome JOB#: [id number] / [id number]
[2016-10-09] MEDS: VANCOMYCIN 1.25 GM in IV NORMAL SALINE 250ML 250 ML IV SCH (09:53)
[2016-10-09] MEDS: VANCOMYCIN PER PHARMACY MC PRN (10:17)
[2016-10-09 10:29] VITALS: BP 133/77
[2016-10-09 14:15] VITALS: BP 144/81
--- NOTE | 2016-10-10 00:16 | DS ---
DATE OF DISCHARGE: 10/09/2016 Transfer or Discharge Summary HOSPITAL COURSE: This is a 61-year-old female patient who came to the Emergency Room with complaint of left-sided chest pain as well as fever. Initial evaluation showed that her chest x-ray and a CT scan showed that she has what seems to be loculated pleural effusion versus empyema. She is allergic to penicillin, sulfa and cephalexin, so she was started on levofloxacin as well as vancomycin. Continue with all her other medications. As her presentation was because of left-sided chest pain and she was having fever and continued to have this large pleural effusion that is loculated versus empyema. It was felt that the patient will be better served by transferring her to [facility] to consult the Infectious Disease specialist, the hospital director and perhaps the cardiothoracic surgeon and/or interventional radiologist to do thoracentesis to elucidate the nature of this fluid further. I explained the rationale for the transfer and the patient agreed to be transferred. PHYSICAL EXAMINATION: GENERAL: When I saw her today, she looked well and was clearly in no apparent respiratory distress. She was pale, but no jaundice, cyanosis, or thyromegaly. No jugular venous distention. No limb edema. VITAL SIGNS: Her heart rate was 88, blood pressure was 134/70, temperature was 98.1, respiratory rate 20, and oxygen saturation was 93%. HEAD, EYES, EARS, NOSE AND THROAT: Showed normocephalic, atraumatic. NECK: Supple. HEART: Showed normal first and second sounds. No gallop, rub or murmur. CHEST: Shows central trachea and dull percussion noted on the left side posteriorly. There is no vesicular breath sounds. No crepitation or rhonchi. ABDOMEN: Distended, soft, nontender. No guarding or rigidity. No organomegaly. All hernial orifices are intact. Bowel sounds are normal. NEUROLOGIC: She is awake, alert, responding appropriately. All cranial nerves are intact. EXTREMITIES: She moves all her extremities without difficulty. She ambulates without assistance or assistive devices. LABORATORY DATA: Her lab work this morning showed a white cell count of 7500, hemoglobin 11, hematocrit 33, MCV 83 and platelet count of 413,000. Her chemistry showed a serum sodium 140, potassium 3.6, chloride 104, bicarbonate 27, anion gap of 9, BUN 9, creatinine 0.7, estimated GFR was 85 mL per minute. Her glucose 93, calcium 8.5. Total bilirubin, AST, ALT were normal. Alkaline phosphatase slightly elevated. Her sed rate was 91 mm per hour and C-reactive protein was 38.9. Her total protein was 7, albumin 2.8. Her D-dimer was high at 2.82. Urinalysis was unremarkable. Vancomycin trough level was 14.3. Her influenza A and B were negative. Her blood culture so far negative. IMAGING: Her CT scan of the chest and abdomen showed that the patient has no definite evidence of pulmonary embolism; however, she has small partial loculated left-sided pleural effusion, mild emphysematous changes are seen involving both lungs, dependent atelectasis is seen involving both lungs, left greater than right. No area of consolidation is seen, a 3 mm calcified granuloma is seen involving the left upper lobe. No pneumothorax noted. The patient was transferred to [facility] to further investigate the possibility of left side empyema versus loculated pleural effusion. We will continue with IV vancomycin as well as levofloxacin. Continue with all her other medications. We will consult the Infectious Disease, hospital director as well as interventional radiologist and decide on further management accordingly. GRADY COBOS MD DR: SHRUTHI/bartolome JOB#: [id number] / [id number]
== END 2016-10-09 14:52 | disposition short-term general hospital (02) | DRG 871 ==
LOC: ER 15:54 → 1 SOUTH 20:07
PROVIDERS: ADMIT Internal Medicine; ATTEND Internal Medicine
DX: A41.9 Sepsis, unspecified organism (principal); J86.9 Pyothorax without fistula; J90 Pleural effusion, not elsewhere classified; J44.1 Chronic obstructive pulmonary disease with (acute) exacerbation; E87.1 Hypo-osmolality and hyponatremia; J98.11 Atelectasis; I10 Essential (primary) hypertension; F17.210 Nicotine dependence, cigarettes, uncomplicated; E03.9 Hypothyroidism, unspecified; E78.5 Hyperlipidemia, unspecified; E66.9 Obesity, unspecified; Z96.652 Presence of left artificial knee joint; R10.12 Left upper quadrant pain; M15.9 Polyosteoarthritis, unspecified; Z80.1 Family history of malignant neoplasm of trachea, bronchus and lung; Z82.5 Family history of asthma and other chronic lower respiratory diseases; Z88.0 Allergy status to penicillin; Z88.2 Allergy status to sulfonamides; Z90.49 Acquired absence of other specified parts of digestive tract; Z98.51 Tubal ligation status; Z88.1 Allergy status to other antibiotic agents; Z68.31 Body mass index [BMI] 31.0-31.9, adult; Z98.1 Arthrodesis status
CPT/HCPCS: 36415; 71020; 71275; 76641; 80053; 80202; 81001; 82550; 83605; 83880; 84484; 85025; 85027; 85379; 85651; 86140; 87040; 87804; 93005; 94640; 96365; 96366; 96375; 96376; J1956; J2930; J3010; J3370; J7040; J7050; J7512; J7620; J7626; Q9967; 99285-25; J7030

== ENCOUNTER 2016-10-18 16:31 | Emergency (ER) | payer MEDICARE, OTHER ==
[~2016-10-18] VITALS: Ht 154.9 cm; Wt 78.0 kg
[2016-10-18] MEDS ORDERED: KETOROLAC 30 MG/ML VIAL. IV ONE (17:30)
[2016-10-18] MEDS ORDERED: IV NORMAL SALINE 1,000ML 1,000 ML IV ONE (17:45)
--- NOTE | 2016-10-18 17:47 | PHYS DOC ---
Past History Past Medical History: Anxiety, Depression, GERD, Hypertension, Hypothyroid, Other Past Surgical History: Cholecystectomy, Knee Replacement, Tubal ligation, Other Smoking: Greater than 1 pack/day Alcohol Use: None Drug Use: None Adult General Chief Complaint Chief Complaint: ABDOMINAL PAIN HPI HPI 61-year-old female with a past medical history of a recent left-sided lung effusion with a pleuracentesis performed for diagnostic purposes, which was negative for pathology. Patient now presents to the emergency department after sudden onset of left-sided chest wall pain after bending over and simultaneously sneezing hard. Patient states her left anterior chest wall just beneath her left breast is tender and sore with movement and palpation. She is not short of breath and she is clear that she does not have abdominal pain or back pain. Patient has not been ill recently. Review of Systems Review of Systems Constitutional: Denies fever or chills [] Eyes: Denies change in visual acuity, redness, or eye pain [] HENT: Denies nasal congestion or sore throat [] Respiratory: Denies cough or shortness of breath [] Cardiovascular: No additional information not addressed in HPI [] GI: Denies abdominal pain, nausea, vomiting, bloody stools or diarrhea [] : Denies dysuria or hematuria [] Musculoskeletal: Denies back pain or joint pain [] Integument: Denies rash or skin lesions [] Neurologic: Denies headache, focal weakness or sensory changes [] Endocrine: Denies polyuria or polydipsia [] Current Medications Current Medications Current Medications Medications (Trade) Dose Ordered Sig/Sterling Start Time Stop Time Status Last Admin Dose Admin Ketorolac Tromethamine (Toradol) 30 mg 1X ONCE 10/18/16 17:30 10/18/16 17:31 DC Allergies Allergies Allergies Coded Allergies Type Severity Reaction Last Updated Verified Penicillins Allergy Severe 10/07/16 Yes Sulfa (Sulfonamide Antibiotics) Allergy Severe 10/07/16 Yes cephalexin Allergy Severe 10/07/16 Yes Physical Exam Physical Exam Well-appearing female no acute distress alert and communicative normal respiratory rate and pulse ox. Mildly decreased lung sounds left base auscultation otherwise unremarkable. No subcutaneous air appreciated. No skin changes over the chest wall including the distribution of tenderness just inferior to the left breast. No bony tenderness or ecchymosis. Constitutional: Well developed, well nourished, no acute distress, non-toxic appearance. [] HENT: Normocephalic, atraumatic, bilateral external ears normal, oropharynx moist, no oral exudates, nose normal. [] Eyes: PERRLA, EOMI, conjunctiva normal, no discharge. [] Neck: Normal range of motion, no tenderness, supple, no stridor. [] Cardiovascular:Heart rate regular rhythm, no murmur [] Lungs & Thorax: As above. Abdomen: Bowel sounds normal, soft, no tenderness, no masses, no pulsatile masses. [] Skin: Warm, dry, no erythema, no rash. [] Back: No tenderness, no CVA tenderness. [] Extremities: No tenderness, no cyanosis, no clubbing, ROM intact, no edema. [] Neurologic: Alert and oriented X 3, no focal deficits noted. [] Psychologic: Affect normal, judgement normal, mood normal. [] Current Patient Data Vital Signs Vital Signs Date Time Temp Pulse Resp B/P (MAP) Pulse Ox O2 Delivery O2 Flow Rate FiO2 10/18/16 16:52 98.7 92 18 95 Room Air EKG EKG [] Radiology/Procedures Radiology/Procedures Left ribs with PA chest x-rays. [] Course & Med Decision Making Course & Med Decision Making Pertinent Labs and Imaging studies reviewed. (See chart for details) Signs and symptoms consistent with chest wall strain with chest wall tenderness after sneezing. Patient with borderline systolic blood pressure around 100. She is asymptomatic in this regard and has no lightheadedness or syncope. Patient does not feel short of breath but she does have discomfort in the left chest wall area anteriorly when she moves or coughs. No prodromal illness. IV fluids administered as well as Toradol IV. Chest x-ray with left rib series pending. [] Patient is a 61-year-old female signed out to me at [address] Coleman. Patient had a recent overnight admission at [facility] with left-sided pleural effusion and nondiagnostic pathology. She was discharged home earlier this week and states that she was advised to take it easy with no strenuous activity. She says that she is been primarily resting in bed and not for the past 2 days she's been growing increasingly tired and her urine has been "hot." This afternoon while bending forward at the waist she says she sneezed causing some left-sided upper abdominal discomfort described as sharp and stabbing/severe worse with movement and deep breaths. Symptoms appear to be musculoskeletal in nature and a chest x-ray was obtained. CT is indicated with new findings on plain chest films otherwise patient's left upper quadrant abdominal discomfort and tenderness has resolved and her vital signs remain stable. PATIENT: KAI AMEZCUA ACCOUNT: [id number] : 1955 LOCATION: ER AGE: 61 SEX: F EXAM STATUS: REG ER ORD. PHYSICIAN: REJI COLEMAN MD REASON: left sided pain after sneezing violently PROCEDURE: RIBS LEFT AND PA CHEST PA chest and left rib radiographs. History: Lower left chest rib pain after sneezing last night, thoracentesis October 10, 2016. Comparison: Chest radiograph performed [facility] October 10, 2016. Findings: Cardiac silhouette is mildly enlarged. Aortic atherosclerosis is seen. No pneumothorax is seen. There is a lobulated left lower lateral pleural density, could represent small loculated pleural effusion, interval development. This has developed in the interval. No displaced rib fractures are identified. Pulmonary vascularity is accentuated. Impression: 1. Interval development of small loculated left pleural effusion. 2. Mild congestive heart failure. Electronically signed by: Reji Decker MD (10/18/2016 6:23 PM) [facility] DICTATED AND SIGNED BY: REJI DECKER MD DATE: 10/18/161820 CC: REJI COLEMAN MD; LINDSEY MIRANDA; MAICO CERVANTES DO ~ PATIENT: KAI AMEZCUA ACCOUNT: [id number] : 1955 LOCATION: ER AGE: 61 SEX: F EXAM STATUS: REG ER ORD. PHYSICIAN: MAICO CERVANTES DO REASON: L lower chest wall tenderness, abnormal CXR PROCEDURE: CT CHEST WO CONTRAST History: Left chest wall tenderness Comparison: CT angiogram of the chest October 07, 2016. Technique: Helical CT of the chest was performed without intravenous contrast. Exposure: One or more of the following individualized dose reduction techniques were utilized for this examination: 1. Automated exposure control 2. Adjustment of the mA and/or kV according to patient size 3. Use of iterative reconstruction technique Findings: Thyroid is not visualized. Trachea and mainstem bronchi appear patent. Mild pericardial effusion is similar to previous study. Small mediastinal lymph nodes are similar. Emphysematous changes of lungs are again seen. There is a small left pleural effusion which appears slightly smaller from previous study. There does appear to be a mild amount of septal thickening, compatible with mild interstitial edema. No large consolidation is identified. Impression: 1. Mild interstitial edema. 2. Small left pleural effusion. 3. Mild pericardial effusion. Electronically signed by: Reji Decker MD (10/18/2016 7:03 PM) [facility] DICTATED AND SIGNED BY: REJI DECKER MD DATE: 10/18/161858 CC: LINDSEY MIRANDA; MAICO CERVANTES DO ~ Recheck of the patient after CT evaluation finds her sitting up in bed eating a boxed lunch. She says she is feeling much better after IV fluids and denies any current complaints. I discussed the findings in her urine, and need for antimicrobial therapy, and the pending urine culture and sensitivity. I discussed empiric treatment with ciprofloxacin and aggressive oral hydration with close PCP follow-up. Patient expressed agreement and understanding of treatment plan Dragon Disclaimer Dragon Disclaimer This chart was dictated in whole or in part using Voice Recognition software in a busy, high-work load, and often noisy Emergency Department environment. It may contain unintended and wholly unrecognized errors or omissions. Departure Departure: Impression: Primary Impression: UTI (urinary tract infection) Additional Impressions: Pleural effusion Pericardial effusion Hypovolemia dehydration Disposition: 01 HOME, SELF-CARE Admitting Physician: Other Condition: IMPROVED Referrals: LINDSEY MIRANDA (PCP) Patient Instructions: Dehydration, Adult, [id number], Urinary Tract Infection , [id number] Additional Instructions: Stop smoking, seek medical assistance if necessary. Aggressive hydration with gatorade, water. OTC tylenol/ibuprofen as needed. Continue current meds. Rx: ciprofloxacin, take with food Follow up with A Reusch in 2-3 days for recheck, urine culture results, and further evaluation of effusions. Return to ED with new or changing symptoms. Scripts Ciprofloxacin Hcl (CIPRO) 500 Mg Tablet 1 TAB PO BID, #20 TAB Prov: MAICO CERVANTES DO 10/18/16 Problem Qualifiers REJI COLEMAN MD Oct 18, 2016 17:47 MAICO CERVANTES DO Oct 18, 2016 22:06
--- NOTE | 2016-10-18 18:27 | RAD ---
PA chest and left rib radiographs. History: Lower left chest rib pain after sneezing last night, thoracentesis October 10, 2016. Comparison: Chest radiograph performed [facility] October 10, 2016. Findings: Cardiac silhouette is mildly enlarged. Aortic atherosclerosis is seen. No pneumothorax is seen. There is a lobulated left lower lateral pleural density, could represent small loculated pleural effusion, interval development. This has developed in the interval. No displaced rib fractures are identified. Pulmonary vascularity is accentuated. Impression: 1. Interval development of small loculated left pleural effusion. 2. Mild congestive heart failure. Electronically signed by: Reji Rothman MD (10/18/2016 6:23 PM) [facility]
[2016-10-18] MEDS ORDERED: IV NORMAL SALINE 1,000ML 1,000 ML IV SCH (19:01)
--- NOTE | 2016-10-18 19:06 | RAD ---
History: Left chest wall tenderness Comparison: CT angiogram of the chest October 07, 2016. Technique: Helical CT of the chest was performed without intravenous contrast. Exposure: One or more of the following individualized dose reduction techniques were utilized for this examination: 1. Automated exposure control 2. Adjustment of the mA and/or kV according to patient size 3. Use of iterative reconstruction technique Findings: Thyroid is not visualized. Trachea and mainstem bronchi appear patent. Mild pericardial effusion is similar to previous study. Small mediastinal lymph nodes are similar. Emphysematous changes of lungs are again seen. There is a small left pleural effusion which appears slightly smaller from previous study. There does appear to be a mild amount of septal thickening, compatible with mild interstitial edema. No large consolidation is identified. Impression: 1. Mild interstitial edema. 2. Small left pleural effusion. 3. Mild pericardial effusion. Electronically signed by: Reji Rothman MD (10/18/2016 7:03 PM) [facility]
[2016-10-18] MEDS ORDERED: methylPREDNISolone SOD SUCC PF 125 MG/2 ML VIAL. IV ONE (19:15)
[2016-10-18] MEDS ORDERED: IPRATRPIUM/ALBUTEROL 0.5/2.5MG 3 ML NEBU. NEB ONE (19:15)
[2016-10-18 19:17] LABS: BASO # 0.1 x10^3/uL (0.0-0.2); BASO % 1 % (0-3); EOS # 0.1 x10^3/uL (0.0-0.7); EOS % 1 % (0-3); HEMATOCRIT 33.2 % (36.0-47.0); LYMPH # 1.6 x10^3/uL (1.0-4.8); LYMPH % 20 % (24-48); MEAN CORPUSCULAR HEMOGLOBIN 28 pg (25-35); MEAN CORPUSCULAR HGB CONC 33 g/dL (31-37); MEAN CORPUSCULAR VOLUME 83 fL (79-100); MONO # 0.7 x10^3/uL (0.0-1.1); MONO % 8 % (0-9); NEUT # 5.7 x10^3uL (1.8-7.7); NEUT % 70 % (31-73); PLATELET COUNT 301 x10^3/uL (140-400); RED BLOOD COUNT 3.99 x10^6/uL (3.50-5.40); RED CELL DISTRIBUTION WIDTH 15.2 % (11.5-14.5); WHITE BLOOD COUNT 8.2 x10^3/uL (4.0-11.0)
[2016-10-18 19:31] LABS: ALBUMIN 2.7 g/dL (3.4-5.0); ALBUMIN/GLOBULIN RATIO 0.6 (1.0-1.7); CALCIUM 8.1 mg/dL (8.5-10.1); CREATININE 0.9 mg/dL (0.6-1.0); GFR 63.9; POTASSIUM 3.7 mmol/L (3.5-5.1); TOTAL BILIRUBIN 0.3 mg/dL (0.2-1.0); TOTAL PROTEIN 6.9 g/dL (6.4-8.2)
[2016-10-18 21:15] LABS: BILIRUBIN,URINE NEG (NEG); CLARITY,URINE CLEAR; COLOR,URINE AMBER; GLUCOSE,URINE NEG (NEG); NITRITE,URINE POS (NEG); SQUAMOUS EPITHELIAL CELL,UR OCC /LPF; UROBILINOGEN,URINE 0.2 mg/dL (0.2 mg/dL)
[2016-10-18 21:16] LABS: BACTERIA,URINE FEW /HPF (0-FEW)
[2016-10-18] MEDS ORDERED: CIPROFLOXACIN 400MG PREMIX 200 ML IV ONE (21:30)
[2016-10-18] MEDS ORDERED: CIPR500T94 PO (21:58)
[2016-10-18 22:59] VITALS: BP 108/58
== END 2016-10-18 22:59 | disposition home or self-care (01) ==
LOC: ER 16:31
DX: N39.0 Urinary tract infection, site not specified (principal); J90 Pleural effusion, not elsewhere classified; I31.3 Pericardial effusion (noninflammatory); E86.0 Dehydration; E86.1 Hypovolemia; K21.9 Gastro-esophageal reflux disease without esophagitis; I10 Essential (primary) hypertension; E03.9 Hypothyroidism, unspecified; F41.9 Anxiety disorder, unspecified; F17.200 Nicotine dependence, unspecified, uncomplicated; Z88.0 Allergy status to penicillin; Z88.2 Allergy status to sulfonamides; Z88.1 Allergy status to other antibiotic agents
CPT/HCPCS: 36415; 71101; 71250; 80053; 81001; 83605; 85025; 87086; 94640; 96361; 96365; 96375; 99285; J0744; J1885; J2930; J7620; J7030

== ENCOUNTER → 2016-11-13 | Outpatient (CLI) | payer MEDICARE, OTHER ==
[2016-10-18 22:59] VITALS: BP 108/58
[~2016-11-13] MED LIST changes: +CIPR500T94 PO
--- NOTE | 2016-11-13 13:31 | RAD ---
Indication chest congestion. Frontal and lateral views of the chest were obtained. Comparison is made to an examination 10/18/2016. There is probable chronic background changes of fibrosis or emphysema. Heart size is minimally enlarged but unchanged. Pulmonary vasculature is similar to the previous exam. There is no consolidated pneumonia significant pleural fluid collection or pneumothorax. Healed right clavicular fracture is noted. IMPRESSION: Probable chronic changes. No definite acute process seen in the chest.
== END | disposition home or self-care (01) ==
LOC: DXRADRC 13:14
PROVIDERS: ATTEND Physician Assistant Medical
DX: I51.7 Cardiomegaly (principal); R09.89 Other specified symptoms and signs involving the circulatory and respiratory systems; R05 Cough; J45.909 Unspecified asthma, uncomplicated
CPT/HCPCS: 71020

== ENCOUNTER → 2016-12-26 | Outpatient (CLI) | payer MEDICARE, OTHER ==
--- NOTE | 2016-12-26 16:30 | RAD ---
DATE: December 26, 2016 EXAM: MAMMO CLEMENT SCREENING BILATERAL HISTORY: Screening study. COMPARISON: December 05, 2011. This study was interpreted with the benefit of Computerized Aided Detection (CAD). 2-D digital mammographic views of both breasts were performed in the CC and MLO projections. 3-D digital tomosynthesis of both breasts were performed in the CC and MLO projections and reviewed on a computer workstation. FINDINGS: The breast parenchyma is heterogeneously dense. There are no dominant suspicious masses, suspicious microcalcifications or evidence of architectural distortion. IMPRESSION: There are no mammographic indicators for malignancy. BI-RADS CATEGORY: 1 NEGATIVE RECOMMENDED FOLLOW-UP: 12M 12 MONTH FOLLOW-UP PQRS compliance statement: Patient information was entered into a reminder system with a target due date December 27, 2017 for the next mammogram. Mammography is a sensitive method for finding small breast cancers, but it does not detect them all and is not a substitute for careful clinical examination. A negative mammogram does not negate a clinically suspicious finding and should not result in delay in biopsying a clinically suspicious abnormality. "Our facility is accredited by the [employer] Mammography Program." The patient's breast density may affect the ability of mammography to detect breast cancer. There are 4 categories of breast density, A, B, C and D. Breast density A means that most of the breast tissue is replaced with adipose tissue and therefore is not dense. Breast density B means that the breast tissue is mildly dense and scattered. Breast density C means that the breast tissue is heterogeneously dense. Breast density D means that the breast tissue is very dense. Breast densities especially C and D may decrease the sensitivity of mammography to detect breast cancer. Therefore, the patient may benefit from 3-D breast mammography (3D breast tomography) as a part of their screening mammogram. Insurance may or may not pay for this additional imaging. The patient's breast density based on today's mammogram is category C.
--- NOTE | 2016-12-27 09:17 | RAD ---
Bone densitometry scan, 12/26/2016: History: Ovarian failure, fracture with kyphoplasty The lumbar spine and right hip more examined utilizing a DEXA technique. Very high density present in the upper lumbar spine is apparently related to the given history of a kyphoplasty. Bone density measurements in that region would not be service liaison representative. At the L4 level the bone mineral density is 0.91 g/sq cm yielding a T score of -2.4. This is compatible with osteopenia. The total T score at the right hip is -2.2, also compatible with osteopenia. IMPRESSION: Osteopenia
== END | disposition home or self-care (01) ==
LOC: MAMMO 13:20
PROVIDERS: ATTEND Physician Assistant Medical
DX: Z12.31 Encounter for screening mammogram for malignant neoplasm of breast (principal); M85.88 Other specified disorders of bone density and structure, other site
CPT/HCPCS: 77063; 77080; G0202; 77067

== ENCOUNTER 2017-09-26 14:22 | Emergency (ER) | payer MEDICARE, OTHER ==
[~2017-09-26] VITALS: Ht 157.5 cm; Wt 73.5 kg
[~2017-09-26 14:22] MED LIST changes: +OXYC-411 PO; -OXYC1TAB9 PO
[2017-09-26 14:35] VITALS: BP 177/73
--- NOTE | 2017-09-26 14:39 | ED.ADGEN ---
Past History Past Medical History: Anxiety, Depression, GERD, Hypertension, Hypothyroid, Other Past Surgical History: Cholecystectomy, Knee Replacement, Tubal ligation, Other Smoking: Greater than 1 pack/day Alcohol Use: None Drug Use: None Adult General HPI HPI Patient is a 62 year old female who presents with abdominal pain. Patient has been having pain over the left side of her abdomen both upper and lower over the last reading days. Pain has been constant but has waxed and waned in intensity. Pain is sometimes worse in certain positions. She has had some nausea but no vomiting. She had 2 episodes of diarrhea. She denies hematochezia or melena. She has had similar pain symptoms in the past but does not know what was causing them. Her surgical history is positive for appendectomy and cholecystectomy. No fever or chills. She denies urinary symptoms. Review of Systems Review of Systems Constitutional: Denies fever or chills Eyes: Denies change in visual acuity HENT: Denies nasal congestion Respiratory: Denies cough or shortness of breath Cardiovascular: No additional information not addressed in HPI GI: as documented above : Denies dysuria or hematuria Musculoskeletal: Denies back pain Integument: Denies rash or skin lesions Neurologic: Denies headache All other systems were reviewed and found to be within normal limits, except as documented in this note. Current Medications Current Medications Current Medications Medications (Trade) Dose Ordered Sig/Sterling Start Time Stop Time Status Last Admin Dose Admin Iohexol (Omnipaque 300 Mg/ml) 75 ml 1X ONCE 09/26/17 14:45 09/26/17 14:46 DC 09/26/17 14:52 75 ML Allergies Allergies Allergies Coded Allergies Type Severity Reaction Last Updated Verified Penicillins Allergy Severe 10/07/16 Yes Sulfa (Sulfonamide Antibiotics) Allergy Severe 10/07/16 Yes cephalexin Allergy Severe 10/07/16 Yes Physical Exam Physical Exam Constitutional: Well developed, well nourished, no acute distress HENT: Normocephalic, atraumatic, bilateral external ears normal, oropharynx moist Eyes: PERRLA, EOMI, conjunctiva normal Neck: Normal range of motion, no tenderness Cardiovascular:Heart rate regular rhythm, no murmur Lungs & Thorax: Bilateral breath sounds clear to auscultation Abdomen: soft, non-distended, diffusely TTP over the left upper and lower quadrant, no guarding or rebound Skin: Warm, dry, no erythema Back: No tenderness Extremities: No edema Neurologic: Alert and oriented X 3 Psychologic: Affect normal Current Patient Data Vital Signs Vital Signs Date Time Temp Pulse Resp B/P (MAP) Pulse Ox O2 Delivery O2 Flow Rate FiO2 09/26/17 14:35 97.7 96 18 97 Room Air Lab Results Laboratory Tests Test 09/26/17 14:30 09/26/17 14:45 Urine Collection Type Unknown Urine Color Yellow Urine Clarity Hazy Urine pH 6.5 Urine Specific [place] 1.010 Urine Protein Neg (NEG-TRACE) Urine Glucose (UA) Neg mg/dL (NEG) Urine Ketones (Stick) Neg mg/dL (NEG) Urine Blood Mod (NEG) Urine Nitrite Neg (NEG) Urine Bilirubin Neg (NEG) Urine Urobilinogen Dipstick 0.2 mg/dL (0.2 mg/dL) Urine Leukocyte Esterase Trace (NEG) Urine RBC 11-20 /HPF (0-2) Urine WBC Occ /HPF (0-4) Urine Squamous Epithelial Cells Mod /LPF Urine Transitional Epithelial Cells Occ /LPF Urine Bacteria 0 /HPF (0-FEW) White Blood Count 5.4 x10^3/uL (4.0-11.0) Red Blood Count 4.60 x10^6/uL (3.50-5.40) Hemoglobin 13.2 g/dL (12.0-15.5) Hematocrit 38.4 % (36.0-47.0) Mean Corpuscular Volume 83 fL (79-100) Mean Corpuscular Hemoglobin 29 pg (25-35) Mean Corpuscular Hemoglobin Concent 34 g/dL (31-37) Red Cell Distribution Width 15.4 % (11.5-14.5) H Platelet Count 330 x10^3/uL (140-400) Neutrophils (%) (Auto) 72 % (31-73) Lymphocytes (%) (Auto) 21 % (24-48) L Monocytes (%) (Auto) 5 % (0-9) Eosinophils (%) (Auto) 1 % (0-3) Basophils (%) (Auto) 2 % (0-3) Neutrophils # (Auto) 3.9 x10^3uL (1.8-7.7) Lymphocytes # (Auto) 1.1 x10^3/uL (1.0-4.8) Monocytes # (Auto) 0.2 x10^3/uL (0.0-1.1) Eosinophils # (Auto) 0.1 x10^3/uL (0.0-0.7) Basophils # (Auto) 0.1 x10^3/uL (0.0-0.2) Sodium Level 133 mmol/L (136-145) L Potassium Level 3.8 mmol/L (3.5-5.1) Chloride Level 100 mmol/L (98-107) Carbon Dioxide Level 23 mmol/L (21-32) Anion Gap 10 (6-14) Blood Urea Nitrogen 6 mg/dL (7-20) L Creatinine 0.7 mg/dL (0.6-1.0) Estimated GFR (Cockcroft-Gault) 85.1 Glucose Level 114 mg/dL (70-99) H Calcium Level 8.6 mg/dL (8.5-10.1) Total Bilirubin 0.3 mg/dL (0.2-1.0) Direct Bilirubin 0.1 mg/dL (0.0-0.2) Aspartate Amino Transferase (AST) 35 U/L (15-37) Alanine Aminotransferase (ALT) 39 U/L (14-59) Alkaline Phosphatase 139 U/L (46-116) H Total Protein 8.2 g/dL (6.4-8.2) Albumin 3.3 g/dL (3.4-5.0) L Lipase 97 U/L (73-393) EKG EKG [] Radiology/Procedures Radiology/Procedures FINDINGS: Lower thorax: Lung bases are clear. Liver: Unremarkable Spleen: Small accessory splenule. Pancreas: Unremarkable Adrenals:No evidence of mass. Kidneys: Symmetric enhancement. No dominant lesion. Gallbladder: Poorly seen. Lymph nodes: No significant enlargement Vessels: * Aorta: Calcified. Small outpouching of the anteroinferior abdominal aorta just above the aortic bifurcation, measures up to 2 cm wide. No significant aneurysm. * Mesenteric: Patent * Portal venous: Patent GI tract: No evidence of bowel obstruction. Colonic diverticulosis is identified. No evidence of acute colitis. Appendix is not clearly visualized. Reproductive organs: Mildly heterogeneous, may represent fibroids. Urinary bladder: Not adequately distended for evaluation. Peritoneum: No evidence of pneumoperitoneum. No free fluid. Abdominal wall:Unremarkable Spine: Degenerative changes, particularly at L2-L3. Bones: No acute displaced fracture is identified. IMPRESSION: 1. Colonic diverticulosis, without evidence of acute colitis. 2. Mild urinary bladder wall thickening, may be due to incomplete distention. Correlate for symptoms of cystitis. 3. Aortic ectasia. No evidence of aneurysm greater than 3 cm. Course & Med Decision Making Course & Med Decision Making Pertinent Labs and Imaging studies reviewed. (See chart for details) 14:30: Patient is seen and examined. Orders placed for standard abdominal pain workup. 15:40: All results are reviewed and discussed with the patient. She is noted to have microscopic hematuria. The patient states she has been told this in the past but has not followed up yet. She does have a tobacco use history. Today, she is referred to urology for evaluation of this finding. Regarding her abdominal pain, it is possible that the patient passed a kidney stone already. The urine was not infected. There were no additional acute findings. Her lab panel also did not reveal acute findings. The source of her pain is not entirely clear. At home, the patient takes for Percocet daily for baseline pain control. These are the 10 mg extra strength tablets. No additional pain medications prescribed today. She is provided some Reglan to help with nausea symptoms and motility. She is advised to follow-up also with gastroenterology. She has diverticulosis on the CT scan but no diverticulitis was seen today. She will return to the ER for any new or worsening symptoms. Final Impression Final Impression Abdominal Pain Hematuria Dragon Disclaimer Dragon Disclaimer This electronic medical record was generated, in whole or in part, using a voice recognition dictation system. NOMI RIDLEY DO Sep 26, 2017 14:39
[2017-09-26] MEDS ORDERED: IOHEXOL 300 MG/ML 75 ML VIAL. IV ONE (14:45)
[2017-09-26 14:59] LABS: BASO # 0.1 x10^3/uL (0.0-0.2); BASO % 2 % (0-3); EOS # 0.1 x10^3/uL (0.0-0.7); EOS % 1 % (0-3); HEMATOCRIT 38.4 % (36.0-47.0); HEMOGLOBIN 13.2 g/dL (12.0-15.5); LYMPH # 1.1 x10^3/uL (1.0-4.8); LYMPH % 21 % (24-48); MEAN CORPUSCULAR HEMOGLOBIN 29 pg (25-35); MEAN CORPUSCULAR HGB CONC 34 g/dL (31-37); MEAN CORPUSCULAR VOLUME 83 fL (79-100); MONO # 0.2 x10^3/uL (0.0-1.1); MONO % 5 % (0-9); NEUT # 3.9 x10^3uL (1.8-7.7); NEUT % 72 % (31-73); PLATELET COUNT 330 x10^3/uL (140-400); RED CELL DISTRIBUTION WIDTH 15.4 % (11.5-14.5); WHITE BLOOD COUNT 5.4 x10^3/uL (4.0-11.0)
[2017-09-26 15:10] LABS: ALBUMIN 3.3 g/dL (3.4-5.0); CALCIUM 8.6 mg/dL (8.5-10.1); CREATININE 0.7 mg/dL (0.6-1.0); DIRECT BILIRUBIN 0.1 mg/dL (0.0-0.2); GFR 85.1; POTASSIUM 3.8 mmol/L (3.5-5.1); TOTAL BILIRUBIN 0.3 mg/dL (0.2-1.0); TOTAL PROTEIN 8.2 g/dL (6.4-8.2)
[2017-09-26 15:15] LABS: BACTERIA,URINE 0 /HPF (0-FEW); BILIRUBIN,URINE NEG (NEG); CLARITY,URINE HAZY; COLOR,URINE YELLOW; GLUCOSE,URINE NEG (NEG); NITRITE,URINE NEG (NEG); SQUAMOUS EPITHELIAL CELL,UR MOD /LPF; UROBILINOGEN,URINE 0.2 mg/dL (0.2 mg/dL); WBC,URINE OCC /HPF (0-4)
--- NOTE | 2017-09-26 15:15 | RAD ---
CT ABD PELV W/ IV CONTRST ONLY Indication: LEFT SIDE ABDOMINAL TIMES 2 WEEKS, 75MLS OMNI 300 IV CONTRAST Exposure: One or more of the following individualized dose reduction techniques were utilized for this examination: 1. Automated exposure control 2. Adjustment of the mA and/or kV according to patient size 3. Use of iterative reconstruction technique. Comparison: None are available. Contrast: Intravenous contrast was given. No oral contrast per request. FINDINGS: Lower thorax: Lung bases are clear. Liver: Unremarkable Spleen: Small accessory splenule. Pancreas: Unremarkable Adrenals:No evidence of mass. Kidneys: Symmetric enhancement. No dominant lesion. Gallbladder: Poorly seen. Lymph nodes: No significant enlargement Vessels: * Aorta: Calcified. Small outpouching of the anteroinferior abdominal aorta just above the aortic bifurcation, measures up to 2 cm wide. No significant aneurysm. * Mesenteric: Patent * Portal venous: Patent GI tract: No evidence of bowel obstruction. Colonic diverticulosis is identified. No evidence of acute colitis. Appendix is not clearly visualized. Reproductive organs: Mildly heterogeneous, may represent fibroids. Urinary bladder: Not adequately distended for evaluation. Peritoneum: No evidence of pneumoperitoneum. No free fluid. Abdominal wall:Unremarkable Spine: Degenerative changes, particularly at L2-L3. Bones: No acute displaced fracture is identified. IMPRESSION: 1. Colonic diverticulosis, without evidence of acute colitis. 2. Mild urinary bladder wall thickening, may be due to incomplete distention. Correlate for symptoms of cystitis. 3. Aortic ectasia. No evidence of aneurysm greater than 3 cm. Electronically signed by: Reji Buck MD (09/26/2017 3:11 PM) [id number]
[2017-09-26] MEDS ORDERED: METO10TA81 PO (15:39)
== END 2017-09-26 15:48 | disposition home or self-care (01) ==
LOC: ER 14:22
DX: R10.12 Left upper quadrant pain (principal); R10.32 Left lower quadrant pain; R31.9 Hematuria, unspecified; R19.7 Diarrhea, unspecified; K57.30 Diverticulosis of large intestine without perforation or abscess without bleeding; I77.819 Aortic ectasia, unspecified site; K21.9 Gastro-esophageal reflux disease without esophagitis; I10 Essential (primary) hypertension; F17.200 Nicotine dependence, unspecified, uncomplicated; E03.9 Hypothyroidism, unspecified; Z90.49 Acquired absence of other specified parts of digestive tract; Z98.51 Tubal ligation status; Z88.1 Allergy status to other antibiotic agents; Z88.0 Allergy status to penicillin; Z88.2 Allergy status to sulfonamides
CPT/HCPCS: 36415; 74177; 80048; 80076; 81001; 83690; 85025; 99285; Q9967

== ENCOUNTER → 2017-11-19 | Outpatient (CLI) | payer MEDICARE, OTHER ==
[~2017-11-19] MED LIST changes: -LOSA100T6 PO; +LOSA100T7 PO; +METO10TA81 PO
--- NOTE | 2017-11-19 14:41 | RAD ---
Renal ultrasound 11/19/2017 INDICATION: Abdominal pain. Microscopic hematuria per patient. COMPARISON STUDY: CT of the abdomen and pelvis September 26, 2017 Discussion: Ultrasound evaluation of the kidneys was performed. Static images are submitted to PACS. Right kidney measures 11.7 x 5.1 x 5.1 cm. Left kidney measures 11.5 x 4.9 x 4.2 cm. No hydronephrosis, nephrolithiasis, or focal renal lesion is seen involving either kidney. The bladder is partially decompressed. This limits evaluation of bladder wall thickness. The bladder is otherwise grossly unremarkable in appearance. Bilateral ureteral jets noted. Renal vascularity is grossly unremarkable in color Doppler imaging. IMPRESSION: Normal sonographic appearance of the kidneys. Electronically signed by: Calos Motley MD (11/19/2017 2:37 PM) [id number]
== END | disposition home or self-care (01) ==
LOC: US 12:54
PROVIDERS: ATTEND Physician Assistant Medical
DX: R31.29 Other microscopic hematuria (principal); R10.84 Generalized abdominal pain; J44.9 Chronic obstructive pulmonary disease, unspecified; K21.9 Gastro-esophageal reflux disease without esophagitis; Z96.652 Presence of left artificial knee joint; Z90.49 Acquired absence of other specified parts of digestive tract; Z88.0 Allergy status to penicillin; Z88.1 Allergy status to other antibiotic agents; Z88.2 Allergy status to sulfonamides; Z80.1 Family history of malignant neoplasm of trachea, bronchus and lung; Z82.5 Family history of asthma and other chronic lower respiratory diseases
CPT/HCPCS: 76770

== ENCOUNTER → 2019-05-10 | Outpatient (CLI) | payer OTHER, MEDICAID ==
[~2019-05-10] MED LIST changes: +CONTRAST GIVEN MC PRN; +IOHEXOL 300 MG/ML 75 ML VIAL. IV ONE; +IOHEXOL 300 MG/ML 75 ML VIAL. ONE; +LOSA100T14 PO; -LOSA100T7 PO; -TIZA4TAB PO; +TIZA4TAB2 PO
--- NOTE | 2019-05-10 12:59 | RAD ---
CT abdomen and pelvis with contrast PQRS statement: CT scans at this facility use dose reduction including either automated exposure control, iterative reconstructions, and /or weight based radiation dosing via mA and kV modification when appropriate to reduce radiation dose to as low as reasonably achievable. HISTORY: Hematuria. Contrast: 75 mL Omnipaque 300 intravenous contrast. COMPARISON: CT abdomen and pelvis September 26, 2017. Abdomen findings: Lumbar disc disease and arthritic changes spinal canal and neural foraminal stenoses. Postcontrast imaging will limit sensitivity to detect small renal calculi. Cholecystectomy. 1 cm accessory spleen posterior of the spleen. Spleen, liver, pancreas, adrenal glands and left kidney are unremarkable. Right renal midpole medullary subcentimeter indistinct hypodensity stable to prior study too small to characterize due to volume averaging. There is congenital malrotation with reversal of the positions of the SMA and SMV and failure of the duodenum to cross the midline with the small bowel remaining on the right side of the abdomen, and the cecum at the mid abdomen. Scattered colonic diverticulosis. No obstruction or inflammation the GI tract. Extensive sigmoid diverticulosis. No abdominal fluid or adenopathy. Aortoiliac calcified plaque. Pelvis findings: Lobulation of the uterus as well as some hypervascular enhancing foci consistent with multiple leiomyomas largest of which measures approximately 3 cm along the posterior fundus. Ovaries, bladder, rectum and bones are unremarkable. No pelvic fluid or adenopathy. IMPRESSION: 1. No acute process. 2. Subcentimeter right renal midpole medullary hypodense lesion is stable to 2018, the stability favoring a benign lesion. 3. Colonic diverticulosis. 4. Uterine fibroids. 5. Congenital malrotation of the bowel similar to the prior exam. Electronically signed by: Mathew Mobley MD (05/10/2019 12:56 PM) [id number]
== END ==
LOC: CT 12:03
PROVIDERS: ATTEND Urology
DX: K57.30 Diverticulosis of large intestine without perforation or abscess without bleeding (principal); D25.9 Leiomyoma of uterus, unspecified; Q43.3 Congenital malformations of intestinal fixation; N28.9 Disorder of kidney and ureter, unspecified; R31.21 Asymptomatic microscopic hematuria; Z90.49 Acquired absence of other specified parts of digestive tract
CPT/HCPCS: 74177; Q9967

== ENCOUNTER → 2020-12-08 | Outpatient (CLI) | payer OTHER, MEDICAID ==
[~2020-12-08] MED LIST changes: -CONTRAST GIVEN MC PRN; -IOHEXOL 300 MG/ML 75 ML VIAL. IV ONE; -IOHEXOL 300 MG/ML 75 ML VIAL. ONE; -OXYC-411 PO; +OXYC1TAB20 PO
--- NOTE | 2020-12-08 15:40 | RAD ---
PA and lateral chest. HISTORY: Right-sided chest wall pain PA and lateral views were taken of the chest. There is an old right clavicle fracture. There is mild chronic interstitial lung disease similar to an old study. There is mild pleural thickening on the ri ght which is more prominent than on the old study. An adjacent rib fracture is not definitively ident ified but rib films could potentially be of benefit. No acute infiltrates are noted. Heart is normal in size. There are no acute infiltrates. IMPRESSION: 1. Mild increased pleural thickening on the right compared to an old exam. 2. No acute infiltrates. Electronically signed by: Sony Kilgore MD (12/08/2020 3:37 PM) [facility]
== END ==
LOC: RAD 15:06
PROVIDERS: ATTEND Physician Assistant Medical
DX: J84.9 Interstitial pulmonary disease, unspecified (principal); Z68.30 Body mass index [BMI] 30.0-30.9, adult; Z87.81 Personal history of (healed) traumatic fracture
CPT/HCPCS: 71046

== ENCOUNTER → 2020-12-25 | Outpatient (CLI) | payer OTHER, MEDICAID ==
[~2020-12-25] MED LIST changes: +TIZA-75 PO; -TIZA4TAB2 PO
--- NOTE | 2020-12-25 15:28 | RAD ---
CT THORAX WO History: Mild increased pleural thickening on the right noted on prior chest radiograph. Technique: CT of the chest was performed without intravenous contrast. Coronal and sagittal reconstru ctions were performed. Exposure: One or more of the following individualized dose reduction techniques were utilized for thi s examination: 1. Automated exposure control 2. Adjustment of the mA and/or kV according to patient size 3. Use of iterative reconstruction technique. Comparison: Chest From 12/08/2020 CT from 10/18/2016 Findings: Chest: Thyroid gland is not well-visualized. No pathologically enlarged supraclavicular or axillary a denopathy. Heart size is normal. No pericardial effusion. Thoracic aorta appears normal in course and caliber with scattered atherosclerotic disease. No definite pathologically enlarged mediastinal or h ilar adenopathy on this noncontrast exam. Prominent right pericardiac lymph nodes appear relatively s imilar dating back to 2016. Moderate to severe upper lobe predominant centrilobular emphysema. Subtle patchy groundglass opacities within the lower lobes more pronounced in the left. No discrete pulmona ry nodule or mass. No focal consolidation or pneumothorax. Nonspecific pleural thickening along the r ight posterior aspect of the right lower lobe. Upper abdomen: The imaged upper abdomen is unremarkable. The spleen is prominent measuring up to 2.8 cm maximal diameter. Bones: No pathologic osseous lesions . Impression: 1. Mild nonspecific pleural thickening along the posterior lateral portion of the right lower lobe. This may represent sequela of prior infectious or inflammatory process, pleural metastasis is not ent irely excluded but felt to be less likely. Short interval follow-up in 3 months is recommended. 2. Basilar groundglass opacities more pronounced in the left lower lobe may represent atelectasis ve rsus infectious/inflammatory process. Recommend attention on follow-up. Electronically signed by: Giuliano Gaston DO (12/25/2020 3:26 PM) [facility]
== END ==
LOC: CT 13:30
PROVIDERS: ATTEND Physician Assistant Medical
DX: R91.8 Other nonspecific abnormal finding of lung field (principal); J92.9 Pleural plaque without asbestos; I25.10 Atherosclerotic heart disease of native coronary artery without angina pectoris
CPT/HCPCS: 71250

== ENCOUNTER 2021-01-10 16:39 | Emergency (ER) | payer OTHER, MEDICAID ==
[~2021-01-10] VITALS: Ht 160 cm; Wt 68.1 kg
--- NOTE | 2021-01-10 16:49 | PHYS DOC ---
Past History Past Medical History: Anxiety, Hypertension, Hypothyroid (DAVID RAO DO) Past Surgical History: Appendectomy, Cholecystectomy, Knee Replacement, Tubal ligation (DAVID RAO DO) Smoking: Greater than 1 pack/day Alcohol Use: None Drug Use: None (DAVID RAO DO) Adult General HPI HPI Patient is a 65-year-old female presenting for known Covid positive state. States she was diagnosed 5 days ago, reports being symptomatic for 7 days in total. She has been attempting to provide supportive care to her self at home but reports increased shortness of breath today prompting her to come in. Denies any upper respiratory symptoms, just admits it has been more difficult to breathe, she has been more fatigued, and she has generalized abdominal cramping with diarrhea. Nothing known makes better, p.o. intake makes worse. Timing of symptoms has been constant since onset. Patient reports she is otherwise been at baseline health. Denies getting COVID-19 shot. Does admit she has been febrile with most recent fever greater than 100.4 was yesterday evening and r esolved with Tylenol use (DAVID RAO DO) Review of Systems Review of Systems Fourteen body systems of review of systems have been reviewed. See HPI for pertinent positives and negative responses, other hampton all other systems are negative, non-pertinent or non-contributory (DAVID RAO DO) Allergies Allergies Allergies Coded Allergies Type Severity Reaction Last Updated Verified Penicillins Allergy Severe 10/07/16 Yes Sulfa (Sulfonamide Antibiotics) Allergy Severe 10/07/16 Yes cephalexin Allergy Severe 10/07/16 Yes (DAVID RAO DO) Physical Exam Physical Exam Constitutional: Well developed, well nourished, no acute distress, non-toxic appearance. HENT: Normocephalic, atraumatic, bilateral external ears normal, oropharynx moist, no oral exudates, nose normal. Eyes: PERRLA, EOMI, conjunctiva normal, no discharge. Neck: Normal range of motion, no tenderness, supple, no stridor. Cardiovascular: Heart rate regular, sinus rhythm, no murmurs rubs or gallops Lungs & Thorax: Bilateral breath sounds clear to auscultation Abdomen: Bowel sounds normal, soft, no tenderness, no masses, no pulsatile masses. Nonsurgical abdomen, no peritoneal signs Skin: Warm, dry, no erythema, no rash. Back: No tenderness, no CVA tenderness. Extremities: No tenderness, no cyanosis, no clubbing, ROM intact, no edema. Neurologic: Alert and oriented X 3, grossly normal motor & sensory function, no focal deficits noted. Psychologic: Affect normal, judgement normal, mood normal. (JALENDAVID DO) Current Patient Data Vital Signs Vital Signs Date Time Temp Pulse Resp B/P (MAP) Pulse Ox O2 Delivery O2 Flow Rate FiO2 01/10/21 17:42 98.1 90 33 117/74 (88) 72 Room Air 01/10/21 17:47 4.0 Vital Signs Date Time Temp Pulse Resp B/P (MAP) Pulse Ox O2 Delivery O2 Flow Rate FiO2 01/10/21 17:47 90 Nasal Cannula 4.0 01/10/21 17:42 98.1 90 33 117/74 (88) Lab Results Laboratory Tests Test 01/10/21 17:07 White Blood Count 4.9 x10^3/uL Red Blood Count 4.14 x10^6/uL Hemoglobin 11.8 g/dL Hematocrit 35.5 % Mean Corpuscular Volume 86 fL Mean Corpuscular Hemoglobin 29 pg Mean Corpuscular Hemoglobin Concent 33 g/dL Red Cell Distribution Width 14.6 % Platelet Count 324 x10^3/uL Neutrophils (%) (Auto) 87 % Lymphocytes (%) (Auto) 8 % Monocytes (%) (Auto) 4 % Eosinophils (%) (Auto) 0 % Basophils (%) (Auto) 1 % Neutrophils # (Auto) 4.3 x10^3uL Lymphocytes # (Auto) 0.4 x10^3/uL Monocytes # (Auto) 0.2 x10^3/uL Eosinophils # (Auto) 0.0 x10^3/uL Basophils # (Auto) 0.0 x10^3/uL Prothrombin Time 10.7 SEC Prothromb Time International Ratio 1.0 Activated Partial Thromboplast Time 28 SEC Sodium Level 134 mmol/L Potassium Level 3.7 mmol/L Chloride Level 98 mmol/L Carbon Dioxide Level 24 mmol/L Anion Gap 12 Blood Urea Nitrogen 13 mg/dL Creatinine 0.7 mg/dL Estimated GFR (Cockcroft-Gault) 84.2 BUN/Creatinine Ratio 19 Glucose Level 114 mg/dL Lactic Acid Level 1.4 mmol/L Calcium Level 7.7 mg/dL Total Bilirubin 0.5 mg/dL Aspartate Amino Transf (AST/SGOT) 95 U/L Alanine Aminotransferase (ALT/SGPT) 68 U/L Alkaline Phosphatase 254 U/L Troponin I High Sensitivity 1487 ng/L QI-Thc-S-Type Natriuretic Peptide 1983 pg/mL Total Protein 7.3 g/dL Albumin 2.3 g/dL Albumin/Globulin Ratio 0.5 Current Medications Medications (Trade) Dose Ordered Sig/Sterling Route PRN Reason Start Time Stop Time Status Last Admin Dose Admin Dexamethasone Sodium Phosphate (Decadron) 10 mg 1X ONCE IVP 01/10/21 17:15 01/10/21 17:20 DC Aspirin ([place]win Aspirin) 325 mg 1X ONCE PO 01/10/21 17:15 01/10/21 17:20 DC Albuterol Sulfate (Ventolin Hfa Inhaler) 1 puff 1X ONCE INH 01/10/21 17:15 01/10/21 17:20 DC 01/10/21 17:46 Iohexol (Omnipaque 350 Mg/ml) 100 ml 1X ONCE IV 01/10/21 17:15 01/10/21 17:20 DC 01/10/21 17:31 Budesonide (Pulmicort) 0.5 mg STK-MED ONCE .ROUTE 01/10/21 17:20 01/10/21 17:20 DC Albuterol Sulfate (Ventolin Hfa Inhaler) 60 puff STK-MED ONCE .ROUTE 01/10/21 17:20 01/10/21 17:20 DC Info (Do NOT chart on this entry -- for MONITORING) 1 each PRN DAILY PRN MC SEE COMMENTS 01/10/21 17:30 01/12/21 17:29 (DAVID RAO DO) EKG EKG EKG ordered and interpreted by myself at 1753 hrs. as sinus rhythm at 92 bpm, unremarkable intervals, no axis deviation, no obvious ischemic findings, no STEMI. No right heart strain (DAVID RAO DO) Radiology/Procedures Radiology/Procedures EXAM: CHEST ONE VIEW. HISTORY: Shortness of breath. COMPARISON: 12/08/2020. FINDINGS: A frontal view of the chest is obtained. Bilateral perihilar predominant groundglass infiltrates have developed since the prior study. There is no pneumothorax or pleural effusion. The heart is not enlarged. There is a chronic nonunified fracture of the right mid clavicle. Anterior cervical discectomy and fusion changes are noted. There are atherosclerotic calcifications of the aorta. IMPRESSION: 1. Bilateral perihilar predominant infiltrates are consistent with atypical pneumonia. Electronically signed by: Catie Mccormick MD (01/10/2021 6:00 PM) [facility] ///////////////////// CT angiography chest with contrast PQRS statement: CT scans at this facility use dose reduction including either automated exposure control, iterative reconstructions, and /or weight based radiation dosing via mA and kV modification when appropriate to reduce radiation dose to as low as reasonably achievable. Contrast: 75 mL Omnipaque 350 intravenous contrast. 3-D MIP reconstructions of the arteries were acquired. HISTORY: Positive Covid infection, shortness of breath, hypoxia. COMPARISON: CT chest December 25, 2020 FINDINGS: Small volume of perihepatic free fluid underneath the diaphragm. Calcified plaque coronary arteries and thoracic aorta. Heart size normal. Lipomatous hypertrophy interatrial septum. There is mild mediastinal and hilar adenopathy lymph node measures 2 cm in size which have developed. No pulmonary artery emboli. Chronic nonunion right clavicle fracture. Pulmonary emphysema. Trachea and bronchi are unremarkable. There are extensive bilateral heterogeneous pulmonary opacities. No pulmonary interstitial edema. No pleural effusions. No pneumothorax. Bones are unremarkable. IMPRESSION: 1. No pulmonary artery emboli. 2. Extensive pulmonary opacities given history of positive Covid infection most likely represents acute viral pneumonia. Follow-up CT imaging in 3 months is advised to document this resolves over time. 3. Development of mediastinal and hilar adenopathy. This may be reactive. Neoplastic adenopathy is not excluded. Attention on follow-up is advised. 4. Pulmonary emphysema. Electronically signed by: Mathew Mobley MD (01/10/2021 6:07 PM) [facility] (DAVID RAO DO) Heart Score C/O Chest Pain: No HEART Score for Chest Pain: HEART Score for Chest Pain Response (Comments) Value History Moderately Suspicious 1 ECG Nonspecific Repolarizatio 1 Age >45 - < 65 1 Risk Factors 1 or 2 Risk Factors 1 Troponin >3 x Normal Limit 2 Total 6 Risk Factors: Risk Factors: DM, Current or recent (<one month) smoker, HTN, HLP, family history of CAD, obesity. Risk Scores: Risk Factors: DM, Current or recent (<one month) smoker, HTN, HLP, family history of CAD, obesity. (DAVID RAO DO) Course & Med Decision Making Course & Med Decision Making Airway patent, breathing labored on arrival IV access and vitals obtained concerning for marked hypoxia on room air Supplemental oxygen via nasal cannula and proper repositioning of patient improved saturations to greater than 90%. HPI, physical exam and comprehensive ER work-up obtained At time of my shift end, patient demonstrating NSTEMI in the setting of known COVID-19 infection with extensive pulmonary involvement. Heparin drip started. IV antibiotics also started. Discussed patient case and comprehensive signout given to Dr. Mistry. Please defer to his documentation regarding future care of patient while in ER setting //////////////// I assumed care of patient after comprehensive signout from off going physician. Overnight events documented as patient remained on heparin drip with downtrending troponins and no chest pain. Had episodes requiring nonrebreather with escalation to BiPAP for several hours. Patient seen and evaluated by myself at start of shift. She remains on nonrebreather to keep O2 saturations greater than 90%. We are still pending hospital transfer. Efforts were made to transfer to [facility], [facility], [place] etc. without success Patient bed finally open at [facility] for hospital transfer. Patient remained amenable to this. She remained on nonrebreather to maintain O2 saturations greater than 90%. Patient finally accepted for hospital transfer due to bed availability and patient was transferred via EMS Critical Care Time This patient required critical care. Due to the fact that the patient required a significant amount of one on one physician - patient contact time, ordering and review of studies, arranging urgent treatment with development of a management plan, evaluation of patients response to treatment with frequent reassessments, and discussions with other providers this patient required 40 minutes of critical care time. Critical care time was indicated due to the inherent instability and/or potential for instability in this patient. The critical care time that is allocated to this patient is above and beyond any time spent on any other billable procedures performed on this patient. (DAVID RAO DO) Course & Med Decision Making Patient care handed off to me at checkout from day team. Patient awake alert and oriented and mild respiratory distress. Patient tachycardic, tachypneic and hypoxic on room air and saturating about 89% on 5 L nasal cannula. Given patient's CTA showing no pulmonary emboli but extensive pulmonary opacities and known Covid positive status was placed on CPAP trial which significantly improved oxygenation and ventilation as well as patient's work of breathing comfort. Patient's troponin mildly elevated and trending down, more likely demand ischemia versus LA. However heparin was initiated before my shift and was allowed to continue. CPAP was weaned down and patient placed on oxygen nasal cannula which she tolerated well. Given patient's oxygen requirement and mildly elevated troponin likely secondary to demand ischemia advised patient that admission to the hospital would be beneficial for continued evaluation and treatment. Patient grateful, verbalized understanding and agreed with plan of admission. (CANDACE MISTRY MD) Dragon Disclaimer Dragon Disclaimer This electronic medical record was generated, in whole or in part, using a voice recognition dictation system. (DAVID RAO DO) Departure Departure: Impression: Primary Impression: Lab test positive for detection of COVID-19 virus Additional Impressions: Pneumonia Respiratory distress Hypoxia Elevated troponin Disposition: 02 [facility] ([facility] Admitting Physician: Tatiana Otto (DAVID RAO DO) Admitting Physician: Tatiana Otto (CANDACE MISTRY MD) Condition: STABLE Referrals: LINDSEY MIRANDA (PCP) Problem Qualifiers DAVID RAO DO Jan 10, 2021 16:48 CANDACE MISTRY MD Jan 10, 2021 23:33
[2021-01-10] MEDS ORDERED: ALBUTEROL SULFATE 8GM INHALER. INH ONE (17:15)
[2021-01-10] MEDS ORDERED: DEXAMETHASONE SOD PHOS 10 MG/ML VIAL. IVP ONE (17:15)
[2021-01-10] MEDS ORDERED: IOHEXOL 350 MG/ML 100 ML VIAL. IV ONE (17:15)
[2021-01-10] MEDS ORDERED: ASPIRIN 325 MG TABLET PO ONE (17:15)
[2021-01-10] MEDS ORDERED: ALBUTEROL SULFATE 8GM INHALER. ONE (17:20)
[2021-01-10] MEDS ORDERED: BUDESONIDE 0.5 MG/2 ML NEBU ONE (17:20)
[2021-01-10 17:24] LABS: BASO % 1 % (0-3); EOS % 0 % (0-3); HEMATOCRIT 35.5 % (36.0-47.0); HEMOGLOBIN 11.8 g/dL (12.0-15.5); LYMPH # 0.4 x10^3/uL (1.0-4.8); LYMPH % 8 % (24-48); MEAN CORPUSCULAR HEMOGLOBIN 29 pg (25-35); MEAN CORPUSCULAR HGB CONC 33 g/dL (31-37); MEAN CORPUSCULAR VOLUME 86 fL (79-100); MONO # 0.2 x10^3/uL (0.0-1.1); MONO % 4 % (0-9); NEUT # 4.3 x10^3uL (1.8-7.7); NEUT % 87 % (31-73); PLATELET COUNT 324 x10^3/uL (140-400); RED BLOOD COUNT 4.14 x10^6/uL (3.50-5.40); RED CELL DISTRIBUTION WIDTH 14.6 % (11.5-14.5); WHITE BLOOD COUNT 4.9 x10^3/uL (4.0-11.0)
[2021-01-10] MEDS ORDERED: CONTRAST GIVEN. MC PRN (17:30)
[2021-01-10 17:32] LABS: CALCIUM 7.7 mg/dL (8.5-10.1); CREATININE 0.7 mg/dL (0.6-1.0); GFR 84.2; POTASSIUM 3.7 mmol/L (3.5-5.1)
[2021-01-10 17:45] LABS: ALBUMIN 2.3 g/dL (3.4-5.0); ALBUMIN/GLOBULIN RATIO 0.5 (1.0-1.7); TOTAL BILIRUBIN 0.5 mg/dL (0.2-1.0); TOTAL PROTEIN 7.3 g/dL (6.4-8.2)
--- NOTE | 2021-01-10 18:03 | RAD ---
EXAM: CHEST ONE VIEW. HISTORY: Shortness of breath. COMPARISON: 12/08/2020. FINDINGS: A frontal view of the chest is obtained. Bilateral perihilar predominant groundglass infiltrates have developed since the prior study. There i s no pneumothorax or pleural effusion. The heart is not enlarged. There is a chronic nonunified fract ure of the right mid clavicle. Anterior cervical discectomy and fusion changes are noted. There are a therosclerotic calcifications of the aorta. IMPRESSION: 1. Bilateral perihilar predominant infiltrates are consistent with atypical pneumonia. Electronically signed by: Catie Mccormick MD (01/10/2021 6:00 PM) [facility]
--- NOTE | 2021-01-10 18:04 | EKG ---
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
--- NOTE | 2021-01-10 18:09 | RAD ---
CT angiography chest with contrast PQRS statement: CT scans at this facility use dose reduction including either automated exposure cont rol, iterative reconstructions, and /or weight based radiation dosing via mA and kV modification when appropriate to reduce radiation dose to as low as reasonably achievable. Contrast: 75 mL Omnipaque 350 intravenous contrast. 3-D MIP reconstructions of the arteries were acqu ired. HISTORY: Positive Covid infection, shortness of breath, hypoxia. COMPARISON: CT chest December 25, 2020 FINDINGS: Small volume of perihepatic free fluid underneath the diaphragm. Calcified plaque coronary arteries and thoracic aorta. Heart size normal. Lipomatous hypertrophy interatrial septum. There is m ild mediastinal and hilar adenopathy lymph node measures 2 cm in size which have developed. No pulmon yenifer artery emboli. Chronic nonunion right clavicle fracture. Pulmonary emphysema. Trachea and bronchi are unremarkable. There are extensive bilateral heterogeneous pulmonary opacities. No pulmonary inte rstitial edema. No pleural effusions. No pneumothorax. Bones are unremarkable. IMPRESSION: 1. No pulmonary artery emboli. 2. Extensive pulmonary opacities given history of positive Covid infection most likely represents acu te viral pneumonia. Follow-up CT imaging in 3 months is advised to document this resolves over time. 3. Development of mediastinal and hilar adenopathy. This may be reactive. Neoplastic adenopathy is no t excluded. Attention on follow-up is advised. 4. Pulmonary emphysema. Electronically signed by: Mathew Mobley MD (01/10/2021 6:07 PM) [facility]
[2021-01-10] MEDS ORDERED: HEPARIN for IV BOLUS 10,000 UNIT/10 ML VIAL. IV ONE (18:30)
[2021-01-10] MEDS ORDERED: AZITHROMYCIN 500 MG in IV NORMAL SALINE 250ML 250 ML IV ONE (18:30)
[2021-01-10] MEDS ORDERED: HEPARIN for IV BOLUS 10,000 UNIT/10 ML VIAL. IV PRN (18:30)
[2021-01-10] MEDS ORDERED: AZITHROMYCIN 500 MG VIAL. IV ONE (18:44)
[2021-01-10] MEDS ORDERED: IV NORMAL SALINE 250ML 250 ML ONE (18:44)
[2021-01-10] MEDS: HEPARIN 25,000UTS/250ML PREMIX 250 ML IV PRN (18:57)
[2021-01-10] MEDS ORDERED: levoFLOXacin 500 MG TABLET PO ONE (19:45)
[2021-01-10] MEDS ORDERED: IV RINGERS SOLUTION,LACTATED 1,000 ML IV ONE (20:15)
[2021-01-10 20:24] LABS: INFLUENZA A PATIENT NEGATIVE (NEGATIVE); INFLUENZA B PATIENT NEGATIVE (NEGATIVE)
--- NOTE | 2021-01-10 22:11 | EKG ---
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
[2021-01-11] MEDS ORDERED: IV RINGERS SOLUTION,LACTATED 1,000 ML IV ONE (00:30)
[2021-01-11] MEDS ORDERED: ONDANSETRON PF 4 MG/2 ML VIAL. IVP PRN (05:15)
[2021-01-11 08:23] LABS: BACTERIA,URINE 0 /HPF (0-FEW); BILIRUBIN,URINE NEG (NEG); CLARITY,URINE CLEAR; COLOR,URINE YELLOW; GLUCOSE,URINE NEG (NEG); NITRITE,URINE NEG (NEG); SQUAMOUS EPITHELIAL CELL,UR FEW /LPF; WBC,URINE OCC /HPF (0-4)
[2021-01-11] MEDS ORDERED: ALBUTEROL SULFATE 8GM INHALER. INH ONE (10:30)
[2021-01-11] MEDS ORDERED: DEXAMETHASONE SOD PHOS 10 MG/ML VIAL. IVP ONE (11:00)
[2021-01-11 16:15] VITALS: BP 134/83
[2021-01-11] MEDS: HEPARIN 25,000UTS/250ML PREMIX 250 ML IV PRN (17:05)
== END 2021-01-11 17:35 | disposition short-term general hospital (02) ==
LOC: ER 16:39
DX: U07.1 COVID-19 (principal); J18.9 Pneumonia, unspecified organism; R06.03 Acute respiratory distress; R09.02 Hypoxemia; R77.8 Other specified abnormalities of plasma proteins; F41.9 Anxiety disorder, unspecified; I10 Essential (primary) hypertension; E03.9 Hypothyroidism, unspecified; F17.200 Nicotine dependence, unspecified, uncomplicated; Z90.49 Acquired absence of other specified parts of digestive tract; Z90.89 Acquired absence of other organs; Z98.51 Tubal ligation status; Z88.0 Allergy status to penicillin; Z88.2 Allergy status to sulfonamides; Z88.1 Allergy status to other antibiotic agents
CPT/HCPCS: 36415; 71045; 71275; 80053; 81001; 83605; 83880; 84484; 85025; 85610; 85730; 87040; 87426; 87804; 93005; 94640; 96365; 96366; 96368; 96375; 96376; 99291; J0456; J1100; J1644; J2060; J3010; J7050; J7120; Q9967; 96361; U0003